=== PATIENT | male | born 1985 | race Caucasian/White ===

== ENCOUNTER 2020-07-22 19:31 | Emergency (ER) | payer MEDICAID, SELFPAY ==
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
[2020-07-22 19:35] VITALS: BP 159/92; PULSE 124; PULSE 140; RESP 12; TEMP 36.9; O2SAT 95; BMI 23.8
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
--- NOTE | 2020-07-22 19:47 | ECG_ITS ---
Test Reason : OVERDOSE Blood Pressure : / mmHG Vent. Rate : 124 BPM Atrial Rate : 124 BPM P-R Int : 164 ms QRS Dur : 106 ms QT Int : 310 ms P-R-T Axes : 066 072 058 degrees QTc Int : 445 ms Sinus tachycardia Possible Left atrial enlargement Borderline ECG When compared with ECG of 30-MAR-2018 06:49, No significant change was found Referred By: Lisa Schneider Electronically Signed By:CHRISSY VUONG
--- NOTE | 2020-07-22 19:56 | PC.NURSE ---
Pt walking out of the emergency room at this time, [employer] phoned and made aware pt is leaving, no precinct police sergeant was present at bedside, pt ambulating with steady gait. Alert and oriented.
== END 2020-07-22 20:05 | disposition left against medical advice (07) ==
PROVIDERS: Emergency Provider Emergency Medicine Emergency Medical Services
DX: Z04.1 Encounter for examination and observation following transport accident (principal); F14.90 Cocaine use, unspecified, uncomplicated; F11.90 Opioid use, unspecified, uncomplicated
CPT/HCPCS: 71046; 93005; 99283

== ENCOUNTER 2020-10-05 19:21 | Emergency (ER) | payer MEDICAID, SELFPAY ==
[2020-10-05 19:53] VITALS: BP 155/91; PULSE 86; RESP 15; TEMP 36.6; O2SAT 94; BMI 23.7
--- NOTE | 2020-10-05 22:05 | ED_ITS ---
HPI - Extremity Problem General Chief complaint: Extremity Injury, Upper Stated complaint: ?Hand infection Time Seen by Provider: 10/05/20 21:53 Source: patient Mode of arrival: ambulatory History of Present Illness HPI Narrative: 35-year-old male, JOSH, who presents with small ulceration to the left distal index finger pad as well as middle finger pad with surrounding erythema but minimal induration noted patient is able to flex and extend all digits and denies any fevers or chills. Related Data Previous Rx's Medication Instructions Recorded cephalexin 500 mg capsule 500 mg PO Q12H 7 Days #14 cap 10/05/20 doxycycline hyclate 100 mg tablet 100 mg PO BID 7 Days #14 tab 10/05/20 Allergies Allergy/AdvReac Type Severity Reaction Status Date / Time No Known Allergies Allergy Unverified 10/24/19 17:03 [No Known Allergies*] Review of Systems Review of Systems: Pertinent positives and negatives as stated in HPI 10 point review of systems is otherwise negative. [facility] Past Medical History Source: nursing notes reviewed Social History Social History Advance Directives: No Advance Directives Information Provided: No Physical Exam Vital Signs: Vital Signs: Last Vital Signs Temp 97.9 F 10/05/20 19:53 Pulse 86 10/05/20 19:53 Resp 15 10/05/20 19:53 BP 155/91 H 10/05/20 19:53 Pulse Ox 94 10/05/20 19:53 Body Mass Index 23.7 VITAL SIGNS: Reviewed. GENERAL: Well developed, well nourished, in no acute distress. HEAD: Normocephalic/atraumatic EYES: PERRLA, EOMI OROPHARYNX: no oral lesions noted, posterior pharynx clear LUNGS: Normal breath sounds. No adventitious sounds or accessory muscle use. SpO2<94> CARDIOVASCULAR: Regular rate and rhythm without noted murmurs ABDOMEN: Soft, non-tender, non-distended with bowel sounds. MUSCULOSKELETAL: No tenderness, deformities, or effusions noted on gross inspection. EXTREMITIES: No cyanosis, clubbing or edema, small 0.25 ulcerations noted to pad of left index and middle finger with minimal erythema of the fingers and no observed induration SKIN: Inspection of the skin reveals no rashes, otherwise refer to extremity exam NEUROLOGIC: Alert and oriented x 4. Course Course Course Narrative: 35-year-old male with history and clinical presentation consistent with what he describes is possible work related injury, will place on trial of antibiotics with strict instructions to return if there is no further improvement. Patient will also be provided with a hand surgery referral. Discharge Plan Discharge Clinical Impression: Finger infection Patient Disposition: Home, Self-Care Instructions: Puncture Wound (ED) Additional Instructions: 1. Complete the entire course of antibiotics as prescribed. 2. If there is no further improvement in the next 24-48 hours please call the referral provided below for re-evaluation. 3. If there is worsening over the next 24 hours please return to the emergency room. Prescriptions: New doxycycline hyclate 100 mg tablet 100 mg PO BID 7 Days Qty: 14 RF: 0 cephalexin 500 mg capsule 500 mg PO Q12H 7 Days Qty: 14 RF: 0 Referrals: Elena Reinoso MD [Physician] - 2 days
[2020-10-05] MEDS: cephALEXin 500 MG CAPSULE PO (22:32)
== END 2020-10-05 22:34 | disposition home or self-care (01) ==
PROVIDERS: Emergency Provider Student in an Organized Health Care Education/Training Program
DX: L08.9 Local infection of the skin and subcutaneous tissue, unspecified (principal)
CPT/HCPCS: 99283

== ENCOUNTER 2022-05-17 20:29 | Inpatient (IN) | payer OTHER, SELFPAY ==
--- OUTSIDE RECORDS SUMMARY | 2022-05-17 20:35 | XMS_ITS | Continuity of Care Document ---
Author Name Unknown Organization [facility] Address [address] [place] [address]- Care Team Providers Care Concrete Products Dispatcher Name Role Phone Pia GILMAN, Maria Esther Mayberry Primary Care Physician Encounter [facility] [place] Date(s): 07/12/19 - 07/13/[address] [id number] [phone] Encounter Diagnosis Cocaine use disorder(Final) - 07/12/19 Opioid use disorder(Final) - 07/12/19 Discharge Disposition: A-D/C Home Attending Physician: Clayton Malone DO Admitting Physician: Clayton Malone DO Referring Physician: Not on Staff, Referring MD Allergies, Adverse Reactions, Alerts Substance Reaction Severity Status NKA Active Medications Harvoni 1 tablet, By Mouth, Daily, 0 Refills, Maintenance, 01/10/17 13:01:20 Start Date: 01/10/17 Status: Ordered Narcan 4 mg/0.1 mL nasal spray = 4 mg, Nares, Both, Once, may repeat every 2 to 3 minutes until patient responds PRN overdose, # 2each, 0 Refills, Soft Stop, 06/22/19 8:11:00 EDT, [facility], 183, cm, 12/24/18 23:23:00 EST, Height, 79.5, kg, 12/24/18 23:23:00 EST... Start Date: 06/22/19 Status: Ordered Problem List Condition Effective Dates Status Health Status Inform ant Chronic hepatitis C(Confirmed) Active Hepatitis c, chronic(Confirmed) 05/02/14 Active Hepatitis B immune(Confirmed) Active Vital Signs Most recent to oldest [Reference Range]: 1 2 3 Height 183 cm (07/12/19 8:00 PM) 183 cm (07/12/19 6:00 PM) 183 cm (07/12/19 4:00 PM) Weight 79.5 kg (07/12/19 8:00 PM) 79.5 kg (07/12/19 6:00 PM) 79.5 kg (07/12/19 4:00 PM) Oxygen Saturation [94-100 %] 98 % (07/13/19 12:00 AM) 100 % (07/12/19 11:10 PM) 96 % (07/12/19 8:00 PM) Pulse Rate [55-90 bpm] 81 bpm (07/13/19 12:00 AM) 84 bpm (07/12/19 11:10 PM) 80 bpm (07/12/19 8:00 PM) Body Mass Index [18.5-24.99] 23.74 (07/12/19 8:00 PM) 23.74 (07/12/19 6:00 PM) 23.74 (07/12/19 4:00 PM) Blood Pressure [90-138/55-84 mm Hg] 137/76mm Hg (07/13/19 12:00 AM) 135/84mm Hg (07/12/19 11:10 PM) 145/83mm Hg *H* (07/12/19 8:00 PM) Respiratory Rate [16-30 br/min] 16 br/min (07/13/19 12:00 AM) 16 br/min (07/12/19 11:10 PM) 17 br/min (07/12/19 8:00 PM) Temperature [96.8-100.4 DegF] 97.8 DegF (07/12/19 2:35 PM) Mode of Delivery (Oxygen) Room air (07/13/19 12:00 AM) Room air (07/12/19 8:00 PM) Room air (07/12/19 6:00 PM) Blood pressure sites Arm, left (07/12/19 8:00 PM) Arm, left (07/12/19 6:00 PM) Arm, left (07/12/19 4:00 PM) Temperature Route Oral (07/12/19 2:35 PM) Dry Weight 79.5 kg (07/12/19 8:00 PM) 79.5 kg (07/12/19 6:00 PM) 79.5 kg (07/12/19 4:00 PM) Weight Obtained Via 134 (07/12/19 2:35 PM) Social History Social History Type Response Smoking Status 10 or more cigarette s (1/2 pack or more)/day in last 30 days entered on: 12/24/18 Sex Male
--- OUTSIDE RECORDS SUMMARY | 2022-05-17 20:35 | XMS_ITS | Continuity of Care Document ---
Author Name Unknown Organization [facility] Address [address] [place] [id number]- Care Team Providers Care Sea Kayaking Guide Name Role Phone Pia GILMAN, Maria Eshter Mayberry Primary Care Physician [phone] Encounter [facility] [place] Date(s): 06/18/19 - 07/18/19 [facility] [address] [place] [id number] [facility] Attending Physician: Kenroy Paula Admitting Physician: Kenroy Paula Referring Physician: AdmtrKenroy Allergies, Adverse Reactions, Alerts Substance Reaction Severity Status NKA Active Medications Harvoni 1 tablet, By Mouth, Daily, 0 Refills, Maintenance, 01/10/17 13:01:20 Start Date: 01/10/17 Status: Ordered Narcan 4 mg/0.1 mL nasal spray = 4 mg, Nares, Both, Once, may repeat every 2 to 3 minutes until patient responds PRN overdose, # 2each, 0 Refills, Soft Stop, 06/22/19 8:11:00 EDT, [facility], 183, cm, 12/24/18 23:23:00 EST, Height, 79.5, kg, 12/24/18 23:23:00 EST... Start Date: 06/22/19 Status: Ordered Problem List Condition Effective Dates Status Health Status Inform ant Chronic hepatitis C(Confirmed) Active Hepatitis c, chronic(Confirmed) 05/02/14 Active Hepatitis B immune(Confirmed) Active Social History Social History Type Response Smoking Status 10 or more cigarette s (1/2 pack or more)/day in last 30 days entered on: 12/24/18 Sex Male
--- OUTSIDE RECORDS SUMMARY | 2022-05-17 20:35 | XMS_ITS | Continuity of Care Document ---
Author Name Unknown Organization [facility] Address [address] [place] [id number]- Care Team Providers Care Civil Clerk Name Role Phone Maria Esther Palacio NP Primary Care Physician [place] [facility] [place] [facility] [place]11/20 - 03/12/20 [facility] [address] [place] [id number] Allergies, Adverse Reactions, Alerts Substance Reaction Severity Status NKA Active Medications Harvoni 1 tablet, By Mouth, Daily, 0 Refills, Maintenance, 01/10/17 13:01:20 Start Date: 01/10/17 Status: Ordered Mavyret 100 mg-40 mg oral tablet 3 tablet, By Mouth, Daily, # 84 tablet, 1 Refills, Maintenance, 02/11/20 14:52:00 EST, [facility], Partial fill upon patient request if the prescription is for a schedule II opioid drug., 3 tablet By Mouth Daily,x28 days, 183, cm, 12/... Start Date: 02/11/20 Stop Date: 04/07/20 Status: Ordered Narcan 4 mg/0.1 mL nasal spray = 4 mg, Nares, Both, Once, may repeat every 2 to 3 minutes until patient responds PRN overdose, # 2each, 0 Refills, Soft Stop, 06/22/19 8:11:00 EDT, [facility], 183, cm, 12/24/18 23:23:00 EST, [...]
--- OUTSIDE RECORDS SUMMARY | 2022-05-17 20:35 | XMS_ITS | Continuity of Care Document ---
Author Name Unknown Organization [facility] Address [address] [place] [id number]- Care Team Providers Care Spool Tender Name Role Phone Maria Esther Palacio NP Primary Care Physician Encounter [facility] Date(s): 03/20/19 - 07/18/19 [facility] [address] [place] [id number] [facility] Attending Physician: Haley Arevalo NP Admitting Physician: Haley Arevalo NP Referring Physician: Maria Esther Palacio NP Allergies, Adverse Reactions, Alerts Substance Reaction Severity Status NKA Active Medications Harvoni 1 tablet, By Mouth, Daily, 0 Refills, Maintenance, 01/10/17 13:01:20 Start Date: 01/10/17 Status: Ordered Narcan 4 mg/0.1 mL nasal spray = 4 mg, Nares, Both, Once, may repeat every 2 to 3 minutes until patient responds PRN overdose, # 2each, 0 Refills, Soft Stop, 06/22/19 8:11:00 EDT, [facility], 183, cm, 12/24/18 23:23:00 EST, [...]
--- OUTSIDE RECORDS SUMMARY | 2022-05-17 20:35 | XMS_ITS | Continuity of Care Document ---
Author Name Unknown Organization [facility] Address [address] [place] [id number]- Care Team Providers Care Poultry Process Worker Name Role Phone Maria Esther Palacio NP Primary Care Physician Encounter [facility] [place] Date(s): 01/16/20 - 02/15/20 [facility] [address] [place] [id number]- Attending Physician: Kenroy Paula Admitting Physician: Admtr, Kenroy Referring Physician: Admtr, Ar8 Allergies, Adverse Reactions, Alerts Substance Reaction Severity Status NKA Active Medications Harvoni 1 tablet, By Mouth, Daily, 0 Refills, Maintenance, 01/10/17 13:01:20 Start Date: 01/10/17 Status: Ordered Mavyret 100 mg-40 mg oral tablet 3 tablet, By Mouth, Daily, # 84 tablet, 1 Refills, Maintenance, 02/11/20 14:52:00 EST, [facility], Partial fill upon patient request if the prescription is for a schedule II opioid drug., 3 tablet By Mouth Daily,x28 days, 183, cm, ... Start Date: 02/11/20 Stop Date: 04/07/20 Status: Ordered Narcan 4 mg/0.1 mL nasal spray = 4 mg, Nares, Both, Once, may repeat every 2 to 3 minutes until patient responds PRN overdose, # 2each, 0 Refills, Soft Stop, 06/22/19 8:11:00 EDT, [facility], 183, cm, 12/24/18 23:23:00 [...]
[2022-05-17] MEDS: Gabapentin 100 MG CAPSULE PO (21:22)
[2022-05-17] MEDS: Mirtazapine 15 MG TABLET PO (21:22)
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
[2022-05-17] MEDS: Nicotine Polacrilex 2 MG GUM BUCCAL (22:16)
--- NOTE | 2022-05-18 06:42 | HE.PHANOTE ---
Pharmacy has received patients methadone verification form. Patient was verified to have 80 mg dosing, last dose was 05/17/22. Verified by María Elena Pisano with [facility]
[2022-05-18] MEDS: Gabapentin 100 MG CAPSULE PO (08:22)
[2022-05-18] MEDS: Sertraline HCL 50 MG TABLET PO (08:22)
[2022-05-18] MEDS: Nicotine 14 MG PATCH.TD24 TRANSDERMA (08:22)
[2022-05-18] MEDS: methADONE HCl 20 MG/2 ML ORAL.CONC 80 MG PO (08:22)
[2022-05-18 08:56] LABS: Estimated Average Glucose 100 mg/dL; Hemoglobin A1c % 5.1 %
[2022-05-18 09:10] LABS: Cholesterol 161 mg/dL; HDL Cholesterol 44 mg/dL; LDL Cholesterol Calculated 100 mg/dl; Magnesium 1.9 mg/dL (1.6-2.6); Triglycerides 85 mg/dL
--- NOTE | 2022-05-18 09:33 | HO.PSYADMNOT ---
HPI Date of Service: 05/18/22 Chief Complaint: Major Depressive Disorder Sources of Information: patient interviewed, chart reviewed and crisis/core team assessment reviewed HPI Subjective Notes: [facility]ley Warning and Conditional Voluntary Diagnostics Labs Labs: Laboratory Results - last 48 hr 05/18/22 05/18/22 08:15 08:15 Estimat Average Glucose 100 Hemoglobin A1c % 5.1 Magnesium 1.9 Triglycerides 85 Cholesterol 161 LDL Cholesterol, Calc 100 HDL Cholesterol 44 Meds/Allergies Meds Home Medications Medication Instructions Recorded Confirmed Type methadone 10 mg/mL oral concentrate 80 mg PO DAILY 05/18/22 05/18/22 History Allergies Allergies Allergy/AdvReac Type Severity Reaction Status Date / Time No Known Allergies Allergy Unverified 10/24/19 17:03 [No Known Allergies*] Assessment & Plan Statement Statement: I have reviewed the history and physical and performed a pertinent examination on my patient. No changes have occurred unless specified. If the History and Physical was not performed prior to admission, the Hospitalist's service will be consulted for completing the admission physical. Time Spent With Patient Time: Total time managing care of this patient today ____ minutes.
[2022-05-18 09:41] LABS: Folate 7.5 ng/mL (> or = 4.0); Free T4 (Free Thyroxine) 0.91 ng/dL (0.71-1.85); Thyroid Stimulating Hormone 5.62 uIU/mL (0.32-4.0); Vitamin B12 434 pg/mL (200-900)
[2022-05-18 09:58] VITALS: BP 171/87; PULSE 82; RESP 18; TEMP 36.4; O2SAT 97
[2022-05-18] MEDS: Nicotine Polacrilex 2 MG GUM BUCCAL (11:01)
[2022-05-18] MEDS: Gabapentin 300 MG CAPSULE 600 MG PO ×2 (14:18→20:11)
[2022-05-18] MEDS: hydrOXYzine HCL 25 MG TABLET PO ×2 (14:20→20:11)
--- NOTE | 2022-05-18 15:11 | HO.PSYCHPN ---
Subjective Subjective Date of Service: 05/18/22 Reason For Visit: Major Depressive Disorder Subjective Notes: Conditional Voluntary Healthcare Proxy: No Guardianship: No Medical Problems Affecting Mental Status: No Interim History: 37 yo male, hx of bipolar disorder, alcohol use disorder, opiate use disorder- on Methadone, MENDEZ, transfer from [facility] for SI with plan, increase in depression due to life changes and losses. Pt reports he is 10 months sober. He had been on an effective combination of medications, stopped as he reports he was feeling better and did not think they were needed any longer and declined. With increasing depressive sx, pt felt his sobriety was in jeopardy when girlfriend relapsed-as a result he left the home, and fathers home had substances present as well. He then reported an increase in sx resulting in SI with plan. States today he is pleased to be back on medications. States he thought his emotional support animal would take the place of medications, now realizes he needs both. Reports feeling tired but with a sense of relief he is in treatment. He will return to his home and work with supports and regime suggested along with a return to his OP team. Medication Compliance: Yes Side effects from medications: No Attending Groups: Intermittent Review of Systems Acute medical concerns: No Medical Review of Systems: unchanged Review of Systems Review of Systems Yes all other systems are reviewed and are negative Constitutional: Reports no additional constitutional complaints Eyes: Reports no additional eye complaints Reports system reviewed and no additional complaints, except as documented Cardiovascular: Reports no additional cardiovascular complaints Respiratory: Reports no additional respiratory complaints Gastrointestinal: Reports no additional gastrointestinal complaints Genitourinary: Reports no additional male genitourinary complaints Musculoskeletal: Reports no additional musculoskeletal complaints Skin/Breast: Reports system reviewed and no additional complaints, except as docu Reports system reviewed and no additional complaints, except as documented Psychiatric: Reports depression, Reports difficulty concentrating and Reports suicidal ideation Endocrine: Reports no additional endocrine complaints Hematologic/Lymphatic: Reports no additional hematologic/lymphatic complaints Allergic/Immunologic: Reports no additional allergic/immunologic complaints Mental Status Exam Mental Status Exam Patient Appearance: Appropriate Patient Orientation: Person, Place, Time and Situation Level of Consciousness: Alert Patient Behavior: Appropriate, Talkative, Cooperative and Good Eye Contact Mood Description: Depressed and Anxious Affect Description: Flat Patient Cognition Impaired: No Ability to Follow Directions: Good Speech Pattern: Spontaneous Speech Memory Description: Intact Hallucinations: None Delusions: Not Present Thought Process: Rumination Thought Content: positive for Circumstantial and positive for Perseveration Depressive Symptoms: Increased Anxiety and Thoughts of /Suicide (resolving) Judgement: Good Diagnostics Vital Signs (24Hr): Vital Signs - 24 hr 05/18/22 09:58 Temperature 97.6 F Pulse Rate 82 Respiratory Rate 18 Blood Pressure 171/87 H Pulse Oximetry 97 Oxygen Delivery Method Room Air Labs Labs: Laboratory Results - last 48 hr 05/18/22 05/18/22 08:15 08:15 Estimat Average Glucose 100 Hemoglobin A1c % 5.1 Magnesium 1.9 Triglycerides 85 Cholesterol 161 LDL Cholesterol, Calc 100 HDL Cholesterol 44 Vitamin B12 434 Folate 7.5 TSH 5.62 H Free T4 0.91 Medications Medications Current Medications Acetaminophen (Acetaminophen 325 Mg Tablet) 650 mg PO Q6H PRN PRN Reason: Headache/Pain Mild Scale (1-3) Al Hydroxide/Mg Hydroxide (Magnesium Hydrox/Alum Hydrox 30 Ml Oral.Susp) 30 ml PO Q6H PRN PRN Reason: Heartburn/Nausea Gabapentin (Gabapentin 300 Mg Capsule) 600 mg PO TID [facility] Last Admin: 05/18/22 14:18 Dose: 600 mg Hydroxyzine HCl (Hydroxyzine Hcl 25 Mg Tablet) 25 mg PO Q6H PRN PRN Reason: Anxiety Last Admin: 05/18/22 14:20 Dose: 25 mg Magnesium Hydroxide (Milk Of Magnesia 30 Ml Oral.Susp) 30 ml PO DAILY PRN PRN Reason: Constipation Methadone HCl (Methadone Hcl 20 Mg/2 Ml Oral.Conc) 80 mg PO DAILY [facility] Last Admin: 05/18/22 08:22 Dose: 80 mg Mirtazapine (Mirtazapine 15 Mg Tablet) 15 mg PO BEDTIME [facility] Last Admin: 05/17/22 21:22 Dose: 15 mg Nicotine (Nicotine 21 Mg Patch.Td24) 21 mg TRANSDERMA DAILY [facility] Nicotine Polacrilex (Nicotine Polacrilex 2 Mg Gum) 2 mg BUCCAL Q2H PRN PRN Reason: Nicotine Cravings Last Admin: 05/18/22 11:01 Dose: 2 mg Sertraline HCl (Sertraline Hcl 100 Mg Tablet) 100 mg PO DAILY [facility] Trazodone HCl (Trazodone Hcl 50 Mg Tablet) 50 mg PO BEDTIME MRX1 PRN PRN Reason: Insomnia Allergies Allergies Allergy/AdvReac Type Severity Reaction Status Date / Time No Known Allergies Allergy Unverified 10/24/19 17:03 [No Known Allergies*] Assessment & Plan Assessment & Plan (1) Bipolar disorder: Status: Acute Code(s): F31.9 - Bipolar disorder, unspecified (2) Anxiety: Status: Acute Code(s): F41.9 - Anxiety disorder, unspecified Plan 37 yo male, hx of bipolar disorder, anxiety, opioid use disorder, currently on Methadone, alcohol use disorder, sober for 10 months with SI due to stopping meds (he thought he was improved and did not need them), replacing meds with a service animal and experiencing girlfriends relapse and familys use of substances in their home increasing his relapse risk and resulting in SI. Plan: Increase Sertraline to 100 mg daily-pt was taking this at home Increase Gabapentin to 600 mg tid-pt was taking this at home Continue Remeron/Methadone Collateral contact as needed Refer to OP for ongoing med mgt and therapy. Patient educated on: medication risk/benefits and therapeutic strategies Informed Consent: understands and further education needed Reason for contiued inpatient stay Substantial Risk for: rapid decompensation Time Spent With Patient Time: Total time managing care of this patient today ____ minutes.
--- NOTE | 2022-05-18 15:43 | HO.PM.IMCN ---
History of Present Illness Data of Consult Service Date: 05/18/22 Requesting physician: Matt Cowan Primary Care Provider: Maria Esther Palacio NP HPI Reason for consult: medical H&P 37-year-old male with history of anxiety, depression, bipolar disorder, ADHD, history of IV drug abuse last use 10 months ago now maintained on methadone, who is a current every day nicotine vapor admitted to Psychiatry with consult placed to hospitalist service for medical H and P. He has had intermittent hypertension noted at [facility] ED and since admission, suspect anxiety is at least contributory. Denies any history of hypertension. He has no complaints at this time. Review of Systems Review of Systems: General: No fevers, malaise, unintentional weight loss HEENT: No blurred vision, diplopia. No sore throat, nasal congestion, rhinorrhea, sinus pain, ear pain Cardiovascular: No chest pain, palpitations, or leg edema Respiratory: No shortness of breath, wheezing, cough GI: No abdominal pain, nausea, vomiting, diarrhea, constipation, melena, hematochezia : No dysuria, hematuria, increased urinary frequency, decreased urinary output MSK: No myalgia, back pain Neuro: No headaches, weakness, paresthesias Skin: No rashes or lesions PMF Medical History ADHD Anxiety Bipolar disorder History of intravenous drug abuse Opioid dependence on agonist therapy Social History Household Members: None Housing: Apartment Do you presently have visiting nurse or other home services: No Patient Tobacco Use Status: Current everyday Tobacco user Tobacco use type: Smokeless Tobacco Smoked in Last 30 Days: Yes e-Cigarette/Vaping Use: Currently Using Patient Interested in Nicotine Replacement: Yes Use of substances other than those prescribed or required for medical reasons: No Currently Displaying Signs/Symptoms of Drug Intoxication Withdrawal: No Have you been hit, kicked, punched, or otherwise hurt by someone within the past year? If so, by whom?: No Do you feel safe in your current relationship?: No Current Relationship Is there a partner from a previous relationship who is making you feel unsafe now?: No Are you made to feel afraid or neglected: No Advance Directives: No Advance Directives Information Provided: No Do you have thoughts of harming others: None Do you have a plan to hurt others: No Plan Recently lost weight without trying: Yes How much weight loss: 2-13 pounds Eating poorly because of decreased appetite: No Nutrition screen score: 3 Nutrition Risks: No Nutritional Risk Poor oral hygiene: No Meds Allergies Allergy/AdvReac Type Severity Reaction Status Date / Time No Known Allergies Allergy Unverified 10/24/19 17:03 [No Known Allergies*] Active Medications: Current Medications Acetaminophen (Acetaminophen 325 Mg Tablet) 650 mg PO Q6H PRN PRN Reason: Headache/Pain Mild Scale (1-3) Al Hydroxide/Mg Hydroxide (Magnesium Hydrox/Alum Hydrox 30 Ml Oral.Susp) 30 ml PO Q6H PRN PRN Reason: Heartburn/Nausea Gabapentin (Gabapentin 300 Mg Capsule) 600 mg PO TID [facility] Last Admin: 05/18/22 14:18 Dose: 600 mg Hydroxyzine HCl (Hydroxyzine Hcl 25 Mg Tablet) 25 mg PO Q6H PRN PRN Reason: Anxiety Last Admin: 05/18/22 14:20 Dose: 25 mg Magnesium Hydroxide (Milk Of Magnesia 30 Ml Oral.Susp) 30 ml PO DAILY PRN PRN Reason: Constipation Methadone HCl (Methadone Hcl 20 Mg/2 Ml Oral.Conc) 80 mg PO DAILY [facility] Last Admin: 05/18/22 08:22 Dose: 80 mg Mirtazapine (Mirtazapine 15 Mg Tablet) 15 mg PO BEDTIME [facility] Last Admin: 05/17/22 21:22 Dose: 15 mg Nicotine (Nicotine 21 Mg Patch.Td24) 21 mg TRANSDERMA DAILY [facility] Nicotine Polacrilex (Nicotine Polacrilex 2 Mg Gum) 2 mg BUCCAL Q2H PRN PRN Reason: Nicotine Cravings Last Admin: 05/18/22 11:01 Dose: 2 mg Sertraline HCl (Sertraline Hcl 100 Mg Tablet) 100 mg PO DAILY [facility] Trazodone HCl (Trazodone Hcl 50 Mg Tablet) 50 mg PO BEDTIME MRX1 PRN PRN Reason: Insomnia Home Medications Medication Instructions Recorded Confirmed Last Taken Type methadone 10 mg/mL oral concentrate 80 mg PO DAILY 05/18/22 05/18/22 05/17/22 History Physical Exam Vital Signs and Narrative: Vital Signs: Last Vital Signs Temp 97.6 F 05/18/22 09:58 Pulse 82 05/18/22 09:58 Resp 18 05/18/22 09:58 BP 171/87 H 05/18/22 09:58 Pulse Ox 97 05/18/22 09:58 O2 Del Method Room Air 05/18/22 09:58 Constitutional - Awake and Alert, No apparent distress Eyes - PERRLA, EOMI Cardiovascular - S1S2, RRR, No edema Respiratory - Normal lung expansion, Normal respiratory effort, No respiratory distress, CTA bilaterally Gastrointestinal - NT / ND; +BS; No rebound or guarding Extremities - no calf tenderness bilaterally, no swelling Musculoskeletal - Normal inspection, normal ROM Skin - Warm/Dry Neurological - Alert & oriented x3, CN II-XII in tact, 5/5 strength BUE and BLE Psychological - Appropriate affect Results Labs Labs: Laboratory Results - last 24 hr 05/18/22 05/18/22 08:15 08:15 Estimat Average Glucose 100 Hemoglobin A1c % 5.1 Magnesium 1.9 Triglycerides 85 Cholesterol 161 LDL Cholesterol, Calc 100 HDL Cholesterol 44 Vitamin B12 434 Folate 7.5 TSH 5.62 H Free T4 0.91 Assessment and Plan (1) Routine medical exam: Status: Acute Plan 37-year-old male with history of anxiety, depression, bipolar disorder, ADHD, history of IV drug abuse last use 10 months ago now maintained on methadone, who is a current every day nicotine vapor admitted to Psychiatry with consult placed to hospitalist service for medical H and P. #Mood disorder -plan per psychiatry #Opioid dependence with history IVDA -continue methadone -Last heroin use 10 months ago #Elevated blood pressures -Has intermittent HTN as well as normotensive readings at [facility] ED. -Suspect anxiety contributory -However, if BP remains >140/90, consider adding amlodipine 5mg daily #Nicotine dependence -Counseling on cessation -Patch for NRT Thank you for allowing me to participate in this consult. Signing off at this time. Please do not hesitate to call for further questions. Time Spent With Patient Time: Total time managing care of this patient today ____ minutes.
[2022-05-18 18:00] VITALS: BP 131/74; PULSE 51; RESP 20; TEMP 38.1; O2SAT 97
[2022-05-18] MEDS: Mirtazapine 15 MG TABLET PO (20:11)
[2022-05-18] MEDS: traZODone HCL 50 MG TABLET PO (20:11)
[2022-05-19] MEDS: Nicotine 21 MG PATCH.TD24 TRANSDERMA (08:34)
[2022-05-19] MEDS: methADONE HCl 20 MG/2 ML ORAL.CONC 80 MG PO (08:34)
[2022-05-19] MEDS: Gabapentin 300 MG CAPSULE 600 MG PO ×3 (08:34→20:45)
[2022-05-19] MEDS: Sertraline HCL 100 MG TABLET PO (08:34)
[2022-05-19 08:40] VITALS: BP 112/77; PULSE 67; RESP 18; TEMP 36.4; O2SAT 99
[2022-05-19] MEDS: Nicotine Polacrilex 2 MG GUM BUCCAL ×2 (10:32→15:20)
[2022-05-19] MEDS: hydrOXYzine HCL 25 MG TABLET PO (11:50)
[2022-05-19 16:42] VITALS: BP 128/64; PULSE 58
--- NOTE | 2022-05-19 18:53 | HO.PSYCHPN ---
Subjective Subjective Date of Service: 05/19/22 Reason For Visit: Major Depressive Disorder Subjective Notes: Conditional Voluntary and 3 Day Healthcare Proxy: No Guardianship: No Medical Problems Affecting Mental Status: No Interim History: Pt preparing for discharge 05/20/22. Discussed ADHD options today. Discussed guanfacine which we will begin. Review of different options for treatment which he should discuss with OP team. Also discussed shortages which may influence prescribing decisions. Discussed Vyvanse and efficacy. Medication Compliance: Yes Side effects from medications: No Attending Groups: Intermittent Review of Systems Acute medical concerns: No Medical Review of Systems: unchanged Mental Status Exam Mental Status Exam Patient Appearance: Appropriate Patient Orientation: Person, Place, Time and Situation Level of Consciousness: Alert Patient Behavior: Appropriate, Talkative, Cooperative and Good Eye Contact Mood Description: Depressed and Anxious Affect Description: Flat Patient Cognition Impaired: No Ability to Follow Directions: Good Speech Pattern: Spontaneous Speech Memory Description: Intact Hallucinations: None Delusions: Not Present Thought Process: Rumination Thought Content: positive for Circumstantial and positive for Perseveration Depressive Symptoms: Increased Anxiety and Thoughts of /Suicide (denies) Judgement: Good Diagnostics Vital Signs (24Hr): Vital Signs - 24 hr 05/19/22 08:40 05/19/22 16:42 Temperature 97.6 F Pulse Rate 67 58 Respiratory Rate 18 Blood Pressure 112/77 128/64 Pulse Oximetry 99 Oxygen Delivery Method Room Air Labs Labs: Laboratory Results - last 48 hr 05/18/22 05/18/22 08:15 08:15 Estimat Average Glucose 100 Hemoglobin A1c % 5.1 Magnesium 1.9 Triglycerides 85 Cholesterol 161 LDL Cholesterol, Calc 100 HDL Cholesterol 44 Vitamin B12 434 Folate 7.5 TSH 5.62 H Free T4 0.91 Medications Medications Current Medications Acetaminophen (Acetaminophen 325 Mg Tablet) 650 mg PO Q6H PRN PRN Reason: Headache/Pain Mild Scale (1-3) Al Hydroxide/Mg Hydroxide (Magnesium Hydrox/Alum Hydrox 30 Ml Oral.Susp) 30 ml PO Q6H PRN PRN Reason: Heartburn/Nausea Gabapentin (Gabapentin 300 Mg Capsule) 600 mg PO TID [facility] Last Admin: 05/19/22 14:12 Dose: 600 mg Guanfacine HCl (Guanfacine Hcl Er 1 Mg Tab.Er.24h) 1 mg PO BEDTIME [facility] Hydroxyzine HCl (Hydroxyzine Hcl 25 Mg Tablet) 25 mg PO Q6H PRN PRN Reason: Anxiety Last Admin: 05/19/22 11:50 Dose: 25 mg Magnesium Hydroxide (Milk Of Magnesia 30 Ml Oral.Susp) 30 ml PO DAILY PRN PRN Reason: Constipation Methadone HCl (Methadone Hcl 20 Mg/2 Ml Oral.Conc) 80 mg PO DAILY [facility] Last Admin: 05/19/22 08:34 Dose: 80 mg Mirtazapine (Mirtazapine 15 Mg Tablet) 15 mg PO BEDTIME [facility] Last Admin: 05/18/22 20:11 Dose: 15 mg Nicotine (Nicotine 21 Mg Patch.Td24) 21 mg TRANSDERMA DAILY [facility] Last Admin: 05/19/22 08:34 Dose: 21 mg Nicotine Polacrilex (Nicotine Polacrilex 2 Mg Gum) 2 mg BUCCAL Q2H PRN PRN Reason: Nicotine Cravings Last Admin: 05/19/22 15:20 Dose: 2 mg Sertraline HCl (Sertraline Hcl 100 Mg Tablet) 100 mg PO DAILY [facility] Last Admin: 05/19/22 08:34 Dose: 100 mg Trazodone HCl (Trazodone Hcl 50 Mg Tablet) 50 mg PO BEDTIME MRX1 PRN PRN Reason: Insomnia Last Admin: 05/18/22 20:11 Dose: 50 mg Allergies Allergies Allergy/AdvReac Type Severity Reaction Status Date / Time No Known Allergies Allergy Unverified 10/24/19 17:03 [No Known Allergies*] Assessment & Plan Assessment & Plan (1) Bipolar disorder: Status: Acute Code(s): F31.9 - Bipolar disorder, unspecified (2) Anxiety: Status: Acute Code(s): F41.9 - Anxiety disorder, unspecified Plan 37 yo male, hx of bipolar disorder, anxiety, opioid use disorder, currently on Methadone, alcohol use disorder, sober for 10 months with SI due to stopping meds (he thought he was improved and did not need them), replacing meds with a service animal and experiencing girlfriends relapse and family's use of substances in their home increasing his relapse risk and resulting in SI. Plan: Increase Sertraline to 100 mg daily-pt was taking this at home Increase Gabapentin to 600 mg tid-pt was taking this at home Continue Remeron/Methadone Collateral contact as needed Refer to OP for ongoing med mgt and therapy. 05/19/22 Guanfacine 1 mg HS Patient educated on: medication risk/benefits and therapeutic strategies Informed Consent: understands Reason for contiued inpatient stay Substantial Risk for: rapid decompensation Time Spent With Patient Time: Total time managing care of this patient today ____ minutes.
[2022-05-19] MEDS: Mirtazapine 15 MG TABLET PO (20:45)
[2022-05-19] MEDS: guanFACINE HCl ER 1 MG TAB.ER.24H PO (20:45)
[2022-05-20 06:00] VITALS: BP 153/90; PULSE 68; RESP 18; TEMP 37; O2SAT 97
[2022-05-20] MEDS: methADONE HCl 20 MG/2 ML ORAL.CONC 80 MG PO (08:13)
[2022-05-20] MEDS: Gabapentin 300 MG CAPSULE 600 MG PO ×3 (08:13→20:15)
[2022-05-20] MEDS: Sertraline HCL 100 MG TABLET PO (08:13)
[2022-05-20] MEDS: Nicotine 21 MG PATCH.TD24 TRANSDERMA (08:13)
[2022-05-20] MEDS: Nicotine Polacrilex 2 MG GUM BUCCAL (09:26)
[2022-05-20] MEDS: hydrOXYzine HCL 25 MG TABLET PO (09:34)
--- NOTE | 2022-05-20 15:38 | P.PNPSI_ITS ---
Subjective Subjective Date of Service: 05/20/22 Reason For Visit: Major Depressive Disorder Subjective Notes: Conditional Voluntary and 3 Day (retraction) Healthcare Proxy: No Guardianship: No Medical Problems Affecting Mental Status: No Interim History: Yossi retracted his three day notice, decided to remain in pt to work on symptoms, medications and in group therapy. He is very anxious today. He reports his father is taking his boss to detox today and he feels that leaving will jeopardize his sobriety if triggered. I am just not ready, I was in too much of a douglas . (took feedback from his renal social worker who asked him to reconsider). Reviewed sx-racing thoughts-discussed mood stabilizer trial, sleep with tossing and turning, ADD sx. Reports an increase in urination-will complete UACS Medication Compliance: Yes Side effects from medications: No Attending Groups: Intermittent Review of Systems Acute medical concerns: No Medical Review of Systems: unchanged Mental Status Exam Mental Status Exam Patient Appearance: Appropriate Patient Orientation: Person, Place, Time and Situation Level of Consciousness: Alert Patient Behavior: Appropriate, Talkative, Cooperative, Anxious and Good Eye Contact Mood Description: Depressed and Anxious Affect Description: Anxious Patient Cognition Impaired: No Ability to Follow Directions: Good Speech Pattern: Spontaneous Speech Memory Description: Intact Hallucinations: None Delusions: Not Present Thought Process: Rumination Thought Content: positive for Circumstantial and positive for Perseveration Depressive Symptoms: Increased Anxiety and Thoughts of /Suicide (denies) Judgement: Good Diagnostics Vital Signs (24Hr): Vital Signs - 24 hr 05/19/22 16:42 05/20/22 06:00 Temperature 98.6 F Pulse Rate 58 68 Respiratory Rate 18 Blood Pressure 128/64 153/90 H Pulse Oximetry 97 Oxygen Delivery Method Room Air Medications Medications Current Medications Acetaminophen (Acetaminophen 325 Mg Tablet) 650 mg PO Q6H PRN PRN Reason: Headache/Pain Mild Scale (1-3) Al Hydroxide/Mg Hydroxide (Magnesium Hydrox/Alum Hydrox 30 Ml Oral.Susp) 30 ml PO Q6H PRN PRN Reason: Heartburn/Nausea Gabapentin (Gabapentin 300 Mg Capsule) 600 mg PO TID [facility] Last Admin: 05/20/22 14:12 Dose: 600 mg Guanfacine HCl (Guanfacine Hcl Er 1 Mg Tab.Er.24h) 1 mg PO BEDTIME [facility] Last Admin: 05/19/22 20:45 Dose: 1 mg Hydroxyzine HCl (Hydroxyzine Hcl 25 Mg Tablet) 25 mg PO Q6H PRN PRN Reason: Anxiety Last Admin: 05/20/22 09:34 Dose: 25 mg Magnesium Hydroxide (Milk Of Magnesia 30 Ml Oral.Susp) 30 ml PO DAILY PRN PRN Reason: Constipation Methadone HCl (Methadone Hcl 20 Mg/2 Ml Oral.Conc) 80 mg PO DAILY [facility] Last Admin: 05/20/22 08:13 Dose: 80 mg Mirtazapine (Mirtazapine 15 Mg Tablet) 15 mg PO BEDTIME [facility] Last Admin: 05/19/22 20:45 Dose: 15 mg Nicotine (Nicotine 21 Mg Patch.Td24) 21 mg TRANSDERMA DAILY [facility] Last Admin: 05/20/22 08:13 Dose: 21 mg Nicotine Polacrilex (Nicotine Polacrilex 2 Mg Gum) 2 mg BUCCAL Q2H PRN PRN Reason: Nicotine Cravings Last Admin: 05/20/22 09:26 Dose: 2 mg Sertraline HCl (Sertraline Hcl 100 Mg Tablet) 100 mg PO DAILY [facility] Last Admin: 05/20/22 08:13 Dose: 100 mg Trazodone HCl (Trazodone Hcl 50 Mg Tablet) 50 mg PO BEDTIME MRX1 PRN PRN Reason: Insomnia Last Admin: 05/18/22 20:11 Dose: 50 mg Allergies Allergies Allergy/AdvReac Type Severity Reaction Status Date / Time No Known Allergies Allergy Unverified 10/24/19 17:03 [No Known Allergies*] Assessment & Plan Assessment & Plan (1) Bipolar disorder: Status: Acute Code(s): F31.9 - Bipolar disorder, unspecified (2) Anxiety: Status: Acute Code(s): F41.9 - Anxiety disorder, unspecified Plan 37 yo male, hx of bipolar disorder, anxiety, opioid use disorder, currently on Methadone, alcohol use disorder, sober for 10 months with SI due to stopping meds (he thought he was improved and did not need them), replacing meds with a service animal and experiencing girlfriends relapse and family's use of substances in their home increasing his relapse risk and resulting in SI. Plan: Increase Sertraline to 100 mg daily-pt was taking this at home Increase Gabapentin to 600 mg tid-pt was taking this at home Continue Remeron/Methadone Collateral contact as needed Refer to OP for ongoing med mgt and therapy. 05/19/22 Guanfacine 1 mg HS 05/20/22 Trileptal 300 mg bid Clonidine 0.1 mg bid prn anxiety Urine culture Patient educated on: medication risk/benefits and therapeutic strategies Informed Consent: further education needed Reason for continued inpatient stay Substantial Risk for: rapid decompensation Time Spent With Patient Time: Total time managing care of this patient today ____ minutes.
[2022-05-20] MEDS: guanFACINE HCl ER 1 MG TAB.ER.24H PO (20:15)
[2022-05-20] MEDS: Mirtazapine 15 MG TABLET PO (20:15)
[2022-05-20] MEDS: OXcarbazepine 300 MG TABLET PO (20:15)
--- NOTE | 2022-05-20 20:33 | MHC.RECOVSUP ---
? Reason for consult:OPI o? Current location:[facility]? o? Identified substance use concern:? -? Support ? Intervention: o? Community resources provided ? Plan: ? Additional information:[facility] went to meet with this pt, but didn't speak with pt. [facility] left recovery resources for pt with staff.
[2022-05-21 08:45] VITALS: BP 129/68; PULSE 62; RESP 18; TEMP 36.2; O2SAT 98
[2022-05-21] MEDS: Sertraline HCL 100 MG TABLET PO (08:46)
[2022-05-21] MEDS: Nicotine 21 MG PATCH.TD24 TRANSDERMA (08:47)
[2022-05-21] MEDS: OXcarbazepine 300 MG TABLET PO ×2 (08:47→19:31)
[2022-05-21] MEDS: methADONE HCl 20 MG/2 ML ORAL.CONC 80 MG PO (08:47)
[2022-05-21] MEDS: Gabapentin 300 MG CAPSULE 600 MG PO ×4 (08:47→19:31)
[2022-05-21] MEDS: hydrOXYzine HCL 25 MG TABLET PO ×2 (08:50→17:48)
[2022-05-21] MEDS: Nicotine Polacrilex 2 MG GUM 4 MG BUCCAL ×3 (10:33→17:48)
--- NOTE | 2022-05-21 11:38 | P.PNPSI_ITS ---
Subjective Subjective Date of Service: 05/21/22 Reason For Visit: Major Depressive Disorder Interim History: Patient seen, chart reviewed, case discussed with RN. Perseverating on wanting Adderall. Called numerous pharmacies in the area and found that [facility] in [place] has it and wants us to order it, stating that his father can go pick it up. With support of staff, did agree to take PRN clonidine. Had also taken vistaril earlier. Dr Huffman contacted and confirmed that she wants to complete trial of guanfacine before considering stimulants. Medication Compliance: Yes Side effects from medications: No Review of Systems Acute medical concerns: No Medical Review of Systems: unchanged Mental Status Exam Mental Status Exam Patient Appearance: Well Grooomed Patient Orientation: Person, Place, Time and Situation Level of Consciousness: Restless Patient Behavior: Restless and Uncooperative Mood Description: Anxious Affect Description: Apprehensive Ability to Follow Directions: Fair Speech Pattern: Perseverating Delusions: Not Present Thought Process: Intact Depressive Symptoms: Increased Anxiety Abnormal Motor Activity Signs and Symptoms: Restlessness Judgement: Fair Diagnostics Vital Signs (24Hr): Vital Signs - 24 hr 05/21/22 08:45 Temperature 97.1 F Pulse Rate 62 Respiratory Rate 18 Blood Pressure 129/68 Pulse Oximetry 98 Oxygen Delivery Method Room Air Medications Medications Current Medications Acetaminophen (Acetaminophen 325 Mg Tablet) 650 mg PO Q6H PRN PRN Reason: Headache/Pain Mild Scale (1-3) Al Hydroxide/Mg Hydroxide (Magnesium Hydrox/Alum Hydrox 30 Ml Oral.Susp) 30 ml PO Q6H PRN PRN Reason: Heartburn/Nausea Clonidine HCl (Clonidine Hcl 0.1 Mg Tablet) 0.1 mg PO BID PRN; Protocol PRN Reason: anxiety Gabapentin (Gabapentin 300 Mg Capsule) 600 mg PO TID [facility] Last Admin: 05/21/22 08:47 Dose: 600 mg Guanfacine HCl (Guanfacine Hcl Er 1 Mg Tab.Er.24h) 1 mg PO BEDTIME [facility] Last Admin: 05/20/22 20:15 Dose: 1 mg Hydroxyzine HCl (Hydroxyzine Hcl 25 Mg Tablet) 25 mg PO Q6H PRN PRN Reason: Anxiety Last Admin: 05/21/22 08:50 Dose: 25 mg Magnesium Hydroxide (Milk Of Magnesia 30 Ml Oral.Susp) 30 ml PO DAILY PRN PRN Reason: Constipation Methadone HCl (Methadone Hcl 20 Mg/2 Ml Oral.Conc) 80 mg PO DAILY [facility] Last Admin: 05/21/22 08:47 Dose: 80 mg Mirtazapine (Mirtazapine 15 Mg Tablet) 15 mg PO BEDTIME [facility] Last Admin: 05/20/22 20:15 Dose: 15 mg Nicotine (Nicotine 21 Mg Patch.Td24) 21 mg TRANSDERMA DAILY [facility] Last Admin: 05/21/22 08:47 Dose: 21 mg Nicotine Polacrilex (Nicotine Polacrilex 2 Mg Gum) 4 mg BUCCAL Q2H PRN PRN Reason: Nicotine Cravings Last Admin: 05/21/22 10:33 Dose: 4 mg Oxcarbazepine (Oxcarbazepine 300 Mg Tablet) 300 mg PO BID [facility] Last Admin: 05/21/22 08:47 Dose: 300 mg Sertraline HCl (Sertraline Hcl 100 Mg Tablet) 100 mg PO DAILY [facility] Last Admin: 05/21/22 08:46 Dose: 100 mg Trazodone HCl (Trazodone Hcl 50 Mg Tablet) 50 mg PO BEDTIME MRX1 PRN PRN Reason: Insomnia Last Admin: 05/18/22 20:11 Dose: 50 mg Allergies Allergies Allergy/AdvReac Type Severity Reaction Status Date / Time No Known Allergies Allergy Unverified 10/24/19 17:03 [No Known Allergies*] Assessment & Plan Assessment & Plan (1) Bipolar disorder: Status: Acute Code(s): F31.9 - Bipolar disorder, unspecified (2) Anxiety: Status: Acute Code(s): F41.9 - Anxiety disorder, unspecified Assessment and Plan: Focused exclusively on getting adderall. With support, did agree to take PRN clonidine Plan 37 yo male, hx of bipolar disorder, anxiety, opioid use disorder, currently on Methadone, alcohol use disorder, sober for 10 months with SI due to stopping me ds (he thought he was improved and did not need them), replacing meds with a service animal and experiencing girlfriends relapse and family's use of substances in their home increasing his relapse risk and resulting in SI. Plan: Increase Sertraline to 100 mg daily-pt was taking this at home Increase Gabapentin to 600 mg tid-pt was taking this at home Continue Remeron/Methadone Collateral contact as needed Refer to OP for ongoing med mgt and therapy. 05/19/22 Guanfacine 1 mg HS 05/20/22 Trileptal 300 mg bid Clonidine 0.1 mg bid prn anxiety Urine culture Reason for continued inpatient stay Substantial Risk for: harm to self (no SI) Time Spent With Patient Time: Total time managing care of this patient today 20____ minutes.
[2022-05-21] MEDS: cloNIDine HCL 0.1 MG TABLET PO (11:52)
[2022-05-21 11:53] VITALS: BP 123/66; PULSE 78
[2022-05-21 15:50] VITALS: BP 115/57; PULSE 56
[2022-05-21] MEDS: guanFACINE HCl ER 1 MG TAB.ER.24H PO (19:31)
[2022-05-21] MEDS: Mirtazapine 15 MG TABLET PO (19:31)
[2022-05-22] MEDS: Nicotine 21 MG PATCH.TD24 TRANSDERMA (08:38)
[2022-05-22] MEDS: Gabapentin 300 MG CAPSULE 600 MG PO ×3 (08:38→18:41)
[2022-05-22] MEDS: methADONE HCl 20 MG/2 ML ORAL.CONC 80 MG PO (08:38)
[2022-05-22] MEDS: Sertraline HCL 100 MG TABLET PO (08:38)
[2022-05-22] MEDS: OXcarbazepine 300 MG TABLET PO ×2 (08:38→18:41)
[2022-05-22 08:40] VITALS: BP 125/64; PULSE 65; RESP 18; TEMP 36.7; O2SAT 97
[2022-05-22] MEDS: hydrOXYzine HCL 25 MG TABLET PO ×2 (09:33→16:35)
--- NOTE | 2022-05-22 09:40 | P.PNPSI_ITS ---
Subjective Subjective Date of Service: 05/22/22 Reason For Visit: Major Depressive Disorder Diagnostics Vital Signs (24Hr): Vital Signs - 24 hr 05/21/22 11:53 05/21/22 15:50 05/22/22 08:40 Temperature 98.0 F Pulse Rate 78 56 65 Respiratory Rate 18 Blood Pressure 123/66 115/57 L 125/64 Pulse Oximetry 97 Oxygen Delivery Method Room Air Medications Medications Current Medications Acetaminophen (Acetaminophen 325 Mg Tablet) 650 mg PO Q6H PRN PRN Reason: Headache/Pain Mild Scale (1-3) Al Hydroxide/Mg Hydroxide (Magnesium Hydrox/Alum Hydrox 30 Ml Oral.Susp) 30 ml PO Q6H PRN PRN Reason: Heartburn/Nausea Clonidine HCl (Clonidine Hcl 0.1 Mg Tablet) 0.1 mg PO BID PRN; Protocol PRN Reason: anxiety Last Admin: 05/21/22 11:52 Dose: 0.1 mg Gabapentin (Gabapentin 300 Mg Capsule) 600 mg PO TID [facility] Last Admin: 05/22/22 08:38 Dose: 600 mg Guanfacine HCl (Guanfacine Hcl Er 1 Mg Tab.Er.24h) 1 mg PO BEDTIME [facility] Last Admin: 05/21/22 19:31 Dose: 1 mg Hydroxyzine HCl (Hydroxyzine Hcl 25 Mg Tablet) 25 mg PO Q6H PRN PRN Reason: Anxiety Last Admin: 05/22/22 09:33 Dose: 25 mg Magnesium Hydroxide (Milk Of Magnesia 30 Ml Oral.Susp) 30 ml PO DAILY PRN PRN Reason: Constipation Methadone HCl (Methadone Hcl 20 Mg/2 Ml Oral.Conc) 80 mg PO DAILY [facility] Last Admin: 05/22/22 08:38 Dose: 80 mg Mirtazapine (Mirtazapine 15 Mg Tablet) 15 mg PO BEDTIME [facility] Last Admin: 05/21/22 19:31 Dose: 15 mg Nicotine (Nicotine 21 Mg Patch.Td24) 21 mg TRANSDERMA DAILY [facility] Last Admin: 05/22/22 08:38 Dose: 21 mg Nicotine Polacrilex (Nicotine Polacrilex 2 Mg Gum) 4 mg BUCCAL Q2H PRN PRN Reason: Nicotine Cravings Last Admin: 05/21/22 17:48 Dose: 4 mg Oxcarbazepine (Oxcarbazepine 300 Mg Tablet) 300 mg PO BID [facility] Last Admin: 05/22/22 08:38 Dose: 300 mg Sertraline HCl (Sertraline Hcl 100 Mg Tablet) 100 mg PO DAILY [facility] Last Admin: 05/22/22 08:38 Dose: 100 mg Trazodone HCl (Trazodone Hcl 50 Mg Tablet) 50 mg PO BEDTIME MRX1 PRN PRN Reason: Insomnia Last Admin: 05/18/22 20:11 Dose: 50 mg Allergies Allergies Allergy/AdvReac Type Severity Reaction Status Date / Time No Known Allergies Allergy Unverified 10/24/19 17:03 [No Known Allergies*] Assessment & Plan Assessment & Plan (1) Bipolar disorder: Status: Acute Code(s): F31.9 - Bipolar disorder, unspecified (2) Anxiety: Status: Acute Code(s): F41.9 - Anxiety disorder, unspecified Assessment and Plan: Focused exclusively on getting adderall. With support, did agree to take PRN clonidine Plan 37 yo male, hx of bipolar disorder, anxiety, opioid use disorder, currently on Methadone, alcohol use disorder, sober for 10 months with SI due to stopping meds (he thought he was improved and did not need them), replacing meds with a service animal and experiencing girlfriends relapse and family's use of substances in their home increasing his relapse risk and resulting in SI. Plan: Increase Sertraline to 100 mg daily-pt was taking this at home Increase Gabapentin to 600 mg tid-pt was taking this at home Continue Remeron/Methadone Collateral contact as needed Refer to OP for ongoing med mgt and therapy. 05/19/22 Guanfacine 1 mg HS 05/20/22 Trileptal 300 mg bid Clonidine 0.1 mg bid prn anxiety Urine culture Reason for continued inpatient stay Substantial Risk for: rapid decompensation Time Spent With Patient Time: Total time managing care of this patient today ____ minutes.
--- NOTE | 2022-05-22 09:41 | P.PNPSI_ITS ---
Subjective Subjective Date of Service: 05/22/22 Reason For Visit: Major Depressive Disorder Subjective Notes: Conditional Voluntary Interim History: Accepted that he needs to trial guanfacine before stimulant trial and did well with one time extra dose of gabapentin yesterday. Asking to increase guanfacine to bid today. Reports racing thoughts and concerned that this will continue to interfere with his ability to focus on the job. Medication Compliance: Yes Side effects from medications: No Attending Groups: No Mental Status Exam Mental Status Exam Patient Appearance: Well Grooomed Level of Consciousness: Alert Patient Behavior: Appropriate and Restless Mood Description: Anxious (with racing thoughts) Affect Description: Anxious Speech Pattern: Clear Hallucinations: None Delusions: Not Present Thought Process: Goal Oriented Thought Content: positive for Perseveration Depressive Symptoms: Increased Anxiety and Difficulty Concentrating Judgement: Fair Diagnostics Vital Signs (24Hr): Vital Signs - 24 hr 05/21/22 11:53 05/21/22 15:50 05/22/22 08:40 Temperature 98.0 F Pulse Rate 78 56 65 Respiratory Rate 18 Blood Pressure 123/66 115/57 L 125/64 Pulse Oximetry 97 Oxygen Delivery Method Room Air Medications Medications Current Medications Acetaminophen (Acetaminophen 325 Mg Tablet) 650 mg PO Q6H PRN PRN Reason: Headache/Pain Mild Scale (1-3) Al Hydroxide/Mg Hydroxide (Magnesium Hydrox/Alum Hydrox 30 Ml Oral.Susp) 30 ml PO Q6H PRN PRN Reason: Heartburn/Nausea Clonidine HCl (Clonidine Hcl 0.1 Mg Tablet) 0.1 mg PO BID PRN; Protocol PRN Reason: anxiety Last Admin: 05/21/22 11:52 Dose: 0.1 mg Gabapentin (Gabapentin 300 Mg Capsule) 600 mg PO TID [facility] Last Admin: 05/22/22 08:38 Dose: 600 mg Guanfacine HCl (Guanfacine Hcl Er 1 Mg Tab.Er.24h) 1 mg PO BEDTIME [facility] Last Admin: 05/21/22 19:31 Dose: 1 mg Hydroxyzine HCl (Hydroxyzine Hcl 25 Mg Tablet) 25 mg PO Q6H PRN PRN Reason: Anxiety Last Admin: 05/22/22 09:33 Dose: 25 mg Magnesium Hydroxide (Milk Of Magnesia 30 Ml Oral.Susp) 30 ml PO DAILY PRN PRN Reason: Constipation Methadone HCl (Methadone Hcl 20 Mg/2 Ml Oral.Conc) 80 mg PO DAILY [facility] Last Admin: 05/22/22 08:38 Dose: 80 mg Mirtazapine (Mirtazapine 15 Mg Tablet) 15 mg PO BEDTIME [facility] Last Admin: 05/21/22 19:31 Dose: 15 mg Nicotine (Nicotine 21 Mg Patch.Td24) 21 mg TRANSDERMA DAILY [facility] Last Admin: 05/22/22 08:38 Dose: 21 mg Nicotine Polacrilex (Nicotine Polacrilex 2 Mg Gum) 4 mg BUCCAL Q2H PRN PRN Reason: Nicotine Cravings Last Admin: 05/21/22 17:48 Dose: 4 mg Oxcarbazepine (Oxcarbazepine 300 Mg Tablet) 300 mg PO BID [facility] Last Admin: 05/22/22 08:38 Dose: 300 mg Sertraline HCl (Sertraline Hcl 100 Mg Tablet) 100 mg PO DAILY [facility] Last Admin: 05/22/22 08:38 Dose: 100 mg Trazodone HCl (Trazodone Hcl 50 Mg Tablet) 50 mg PO BEDTIME MRX1 PRN PRN Reason: Insomnia Last Admin: 05/18/22 20:11 Dose: 50 mg Allergies Allergies Allergy/AdvReac Type Severity Reaction Status Date / Time No Known Allergies Allergy Unverified 10/24/19 17:03 [No Known Allergies*] Assessment & Plan Assessment & Plan (1) Bipolar disorder: Status: Acute Code(s): F31.9 - Bipolar disorder, unspecified (2) Anxiety: Status: Acute Code(s): F41.9 - Anxiety disorder, unspecified Assessment and Plan: Focused exclusively on getting adderall. With support, did agree to take PRN clonidine Plan 37 yo male, hx of bipolar disorder, anxiety, opioid use disorder, currently on Methadone, alcohol use disorder, sober for 10 months with SI due to stopping meds (he thought he was improved and did not need them), replacing meds with a service animal and experiencing girlfriends relapse and family's use of substances in their home increasing his relapse risk and resulting in SI. Plan: Increase Sertraline to 100 mg daily-pt was taking this at home Increase Gabapentin to 600 mg tid-pt was taking this at home Continue Remeron/Methadone Collateral contact as needed Refer to OP for ongoing med mgt and therapy. 05/19/22 Guanfacine 1 mg HS 05/20/22 Trileptal 300 mg bid Clonidine 0.1 mg bid prn anxiety Urine culture 05/21/22 No med changes 05/22/22increase gunafacine to bid, Urine culture pending Reason for continued inpatient stay Substantial Risk for: rapid decompensation Time Spent With Patient Time: Total time managing care of this patient today ____ minutes.
[2022-05-22] MEDS: guanFACINE HCl ER 1 MG TAB.ER.24H PO ×2 (09:57→18:41)
[2022-05-22 16:12] VITALS: BP 111/62; PULSE 73
[2022-05-22] MEDS: Nicotine Polacrilex 2 MG GUM 4 MG BUCCAL ×2 (16:35→18:41)
[2022-05-22] MEDS: Mirtazapine 15 MG TABLET PO (18:41)
[2022-05-23 07:50] VITALS: BP 116/61; PULSE 51; RESP 14; TEMP 36.5; O2SAT 96
[2022-05-23] MEDS: Nicotine 21 MG PATCH.TD24 TRANSDERMA (08:37)
[2022-05-23] MEDS: guanFACINE HCl ER 1 MG TAB.ER.24H PO ×3 (08:38→19:51)
[2022-05-23] MEDS: Gabapentin 300 MG CAPSULE 600 MG PO (08:38)
[2022-05-23] MEDS: OXcarbazepine 300 MG TABLET PO ×2 (08:38→19:51)
[2022-05-23] MEDS: methADONE HCl 20 MG/2 ML ORAL.CONC 80 MG PO (08:38)
[2022-05-23] MEDS: Sertraline HCL 100 MG TABLET PO (08:38)
[2022-05-23] MEDS: Nicotine Polacrilex 2 MG GUM 4 MG BUCCAL ×2 (09:41→16:18)
--- NOTE | 2022-05-23 11:08 | HO.PSYCHPN ---
Subjective Subjective Date of Service: 05/23/22 Reason For Visit: Major Depressive Disorder Subjective Notes: Conditional Voluntary Interim History: Feels that guanfacine is not helping focus or agitation but is hesitant to try higher dose. Accepts that I will not be writing stimulant orders. Wants to be on higher dose of gabapentin and wants tablets because he feels that capsules are giving him heartburn. Noted to be relaxed and social with peers when watching basketball yesterday. Some sleep disturbance. Medication Compliance: Yes Side effects from medications: No Attending Groups: No Review of Systems Acute medical concerns: No Mental Status Exam Mental Status Exam Patient Appearance: Well Grooomed Level of Consciousness: Restless Patient Behavior: Appropriate Mood Description: Anxious Speech Pattern: Clear Hallucinations: None Delusions: Not Present Thought Process: Linear Thought Content: positive for Perseveration, negative for Suicidal Ideation or negative for Homicidal Ideation Depressive Symptoms: Difficulty Sleeping and Difficulty Concentrating Judgement: Fair Diagnostics Vital Signs (24Hr): Vital Signs - 24 hr 05/22/22 16:12 05/23/22 07:50 Temperature 97.7 F Pulse Rate 73 51 Respiratory Rate 14 Blood Pressure 111/62 116/61 Pulse Oximetry 96 Oxygen Delivery Method Room Air Medications Medications Current Medications Acetaminophen (Acetaminophen 325 Mg Tablet) 650 mg PO Q6H PRN PRN Reason: Headache/Pain Mild Scale (1-3) Al Hydroxide/Mg Hydroxide (Magnesium Hydrox/Alum Hydrox 30 Ml Oral.Susp) 30 ml PO Q6H PRN PRN Reason: Heartburn/Nausea Clonidine HCl (Clonidine Hcl 0.1 Mg Tablet) 0.1 mg PO BID PRN; Protocol PRN Reason: anxiety Last Admin: 05/21/22 11:52 Dose: 0.1 mg Gabapentin (Gabapentin 300 Mg Capsule) 600 mg PO TID [facility] Last Admin: 05/23/22 08:38 Dose: 600 mg Guanfacine HCl (Guanfacine Hcl Er 1 Mg Tab.Er.24h) 1 mg PO BID [facility] Last Admin: 05/23/22 08:38 Dose: 1 mg Hydroxyzine HCl (Hydroxyzine Hcl 25 Mg Tablet) 25 mg PO Q6H PRN PRN Reason: Anxiety Last Admin: 05/22/22 16:35 Dose: 25 mg Magnesium Hydroxide (Milk Of Magnesia 30 Ml Oral.Susp) 30 ml PO DAILY PRN PRN Reason: Constipation Methadone HCl (Methadone Hcl 20 Mg/2 Ml Oral.Conc) 80 mg PO DAILY [facility] Last Admin: 05/23/22 08:38 Dose: 80 mg Mirtazapine (Mirtazapine 15 Mg Tablet) 15 mg PO BEDTIME [facility] Last Admin: 05/22/22 18:41 Dose: 15 mg Nicotine (Nicotine 21 Mg Patch.Td24) 21 mg TRANSDERMA DAILY [facility] Last Admin: 05/23/22 08:37 Dose: 21 mg Nicotine Polacrilex (Nicotine Polacrilex 2 Mg Gum) 4 mg BUCCAL Q2H PRN PRN Reason: Nicotine Cravings Last Admin: 05/23/22 09:41 Dose: 4 mg Oxcarbazepine (Oxcarbazepine 300 Mg Tablet) 300 mg PO BID [facility] Last Admin: 05/23/22 08:38 Dose: 300 mg Sertraline HCl (Sertraline Hcl 100 Mg Tablet) 100 mg PO DAILY [facility] Last Admin: 05/23/22 08:38 Dose: 100 mg Trazodone HCl (Trazodone Hcl 50 Mg Tablet) 50 mg PO BEDTIME MRX1 PRN PRN Reason: Insomnia Last Admin: 05/18/22 20:11 Dose: 50 mg Allergies Allergies Allergy/AdvReac Type Severity Reaction Status Date / Time No Known Allergies Allergy Unverified 10/24/19 17:03 [No Known Allergies*] Assessment & Plan Assessment & Plan (1) Bipolar disorder: Status: Acute Code(s): F31.9 - Bipolar disorder, unspecified (2) Anxiety: Status: Acute Code(s): F41.9 - Anxiety disorder, unspecified Assessment and Plan: Focused exclusively on getting adderall. With support, did agree to take PRN clonidine Plan 37 yo male, hx of bipolar disorder, anxiety, opioid use disorder, currently on Methadone, alcohol use disorder, sober for 10 months with SI due to stopping meds (he thought he was improved and did not need them), replacing meds with a service animal and experiencing girlfriends relapse and family's use of substances in their home increasing his relapse risk and resulting in SI. Plan: Increase Sertraline to 100 mg daily-pt was taking this at home Increase Gabapentin to 600 mg tid-pt was taking this at home Continue Remeron/Methadone Collateral contact as needed Refer to OP for ongoing med mgt and therapy. 05/19/22 Guanfacine 1 mg HS 4/14/23 Trileptal 300 mg bid Clonidine 0.1 mg bid prn anxiety Urine culture 05/21 No med changes 05/22 increase guanfacine to bid 05/23 increase guanfacine to tid, switch gabapentin to tablets and increase frequency to 4 times per day Reason for continued inpatient stay Substantial Risk for: inability to function Time Spent With Patient Time: Total time managing care of this patient today ____ minutes.
[2022-05-23] MEDS: Gabapentin 600 MG TABLET PO ×3 (12:47→19:50)
[2022-05-23] MEDS: hydrOXYzine HCL 25 MG TABLET PO (16:18)
[2022-05-23] MEDS: Mirtazapine 15 MG TABLET PO (19:50)
[2022-05-24] MEDS: Sertraline HCL 100 MG TABLET PO (08:27)
[2022-05-24] MEDS: OXcarbazepine 300 MG TABLET PO ×2 (08:27→20:07)
[2022-05-24] MEDS: Gabapentin 600 MG TABLET PO ×4 (08:28→20:07)
[2022-05-24] MEDS: methADONE HCl 20 MG/2 ML ORAL.CONC 80 MG PO (08:28)
[2022-05-24] MEDS: guanFACINE HCl ER 1 MG TAB.ER.24H PO (08:28)
[2022-05-24] MEDS: Nicotine 21 MG PATCH.TD24 TRANSDERMA (08:29)
[2022-05-24 08:41] VITALS: BP 111/74; PULSE 104; RESP 16; TEMP 36.6; O2SAT 96
[2022-05-24] MEDS: hydrOXYzine HCL 25 MG TABLET PO (10:04)
[2022-05-24] MEDS: Amphetamine Mixed Salts 10 MG TABLET PO ×2 (10:57→12:57)
--- NOTE | 2022-05-24 12:21 | HO.PSYCHPN ---
Subjective Subjective Date of Service: 05/24/22 Reason For Visit: Major Depressive Disorder Subjective Notes: Conditional Voluntary Healthcare Proxy: No Guardianship: No Medical Problems Affecting Mental Status: No Interim History: Pt focused on treatment of ADHD over the weekend. Guanfacine ineffective. Reports hx of Adderall use- asks to have a trial again. By hx 30 mg bid. Will begin 10 mg bid. 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 Discussed with pt that we could trial this while in pt, however, out patient providers may not want to continue it and supplies are limited due to pandemic shortages. Review of regime, dosages. Denies SE, reports sx decrease and by history has found this regime to be helpful and believes it will be helpful again. Medication Compliance: Yes Side effects from medications: No Attending Groups: Intermittent Review of Systems Acute medical concerns: No Medical Review of Systems: unchanged Mental Status Exam Mental Status Exam Patient Appearance: Appropriate Patient Orientation: Person, Place, Time and Situation Level of Consciousness: Alert Patient Behavior: Appropriate, Talkative, Cooperative, Restless, Anxious, Distractible and Good Eye Contact Mood Description: Anxious, Nervous and Apprehensive Affect Description: Anxious, Nervous and Apprehensive Patient Cognition Impaired: No Ability to Follow Directions: Good Speech Pattern: Spontaneous Speech Memory Description: Intact Hallucinations: None Delusions: Not Present Thought Process: Distracted Thought Content: positive for Circumstantial, positive for Goal Oriented and positive for Suicidal Ideation (denies) Depressive Symptoms: Increased Anxiety, Thoughts of /Suicide (denies) and Difficulty Concentrating Abnormal Motor Activity Signs and Symptoms: Restlessness Judgement: Good Diagnostics Vital Signs (24Hr): Vital Signs - 24 hr 05/24/22 08:41 Temperature 97.8 F Pulse Rate 104 H Respiratory Rate 16 Blood Pressure 111/74 Pulse Oximetry 96 Oxygen Delivery Method Room Air Medications Medications Current Medications Acetaminophen (Acetaminophen 325 Mg Tablet) 650 mg PO Q6H PRN PRN Reason: Headache/Pain Mild Scale (1-3) Al Hydroxide/Mg Hydroxide (Magnesium Hydrox/Alum Hydrox 30 Ml Oral.Susp) 30 ml PO Q6H PRN PRN Reason: Heartburn/Nausea Amphetamine/Dextroamphetamine (Amphetamine Mixed Salts 10 Mg Tablet) 10 mg PO 0800,1400 [facility] Clonidine HCl (Clonidine Hcl 0.1 Mg Tablet) 0.1 mg PO BID PRN; Protocol PRN Reason: anxiety Last Admin: 05/21/22 11:52 Dose: 0.1 mg Gabapentin (Gabapentin 600 Mg Tablet) 600 mg PO QID [facility] Last Admin: 05/24/22 08:28 Dose: 600 mg Hydroxyzine HCl (Hydroxyzine Hcl 25 Mg Tablet) 25 mg PO Q6H PRN PRN Reason: Anxiety Last Admin: 05/24/22 10:04 Dose: 25 mg Magnesium Hydroxide (Milk Of Magnesia 30 Ml Oral.Susp) 30 ml PO DAILY PRN PRN Reason: Constipation Methadone HCl (Methadone Hcl 20 Mg/2 Ml Oral.Conc) 80 mg PO DAILY [facility] Last Admin: 05/24/22 08:28 Dose: 80 mg Mirtazapine (Mirtazapine 15 Mg Tablet) 15 mg PO BEDTIME [facility] Last Admin: 05/23/22 19:50 Dose: 15 mg Multivitamins/Vitamin C (Multivitamin Tablet) 1 tab PO DAILY [facility] Nicotine (Nicotine 21 Mg Patch.Td24) 21 mg TRANSDERMA DAILY [facility] Last Admin: 05/24/22 08:29 Dose: 21 mg Nicotine Polacrilex (Nicotine Polacrilex 2 Mg Gum) 4 mg BUCCAL Q2H PRN PRN Reason: Nicotine Cravings Last Admin: 05/23/22 16:18 Dose: 4 mg Oxcarbazepine (Oxcarbazepine 300 Mg Tablet) 300 mg PO BID [facility] Last Admin: 05/24/22 08:27 Dose: 300 mg Sertraline HCl (Sertraline Hcl 100 Mg Tablet) 100 mg PO DAILY [facility] Last Admin: 05/24/22 08:27 Dose: 100 mg Trazodone HCl (Trazodone Hcl 50 Mg Tablet) 50 mg PO BEDTIME MRX1 PRN PRN Reason: Insomnia Last Admin: 05/18/22 20:11 Dose: 50 mg Allergies Allergies Allergy/AdvReac Type Severity Reaction Status Date / Time No Known Allergies Allergy Unverified 10/24/19 17:03 [No Known Allergies*] Assessment & Plan Assessment & Plan (1) Bipolar disorder: Status: Acute Code(s): F31.9 - Bipolar disorder, unspecified (2) Anxiety: Status: Acute Code(s): F41.9 - Anxiety disorder, unspecified Assessment and Plan: Focused exclusively on getting adderall. With support, did agree to take PRN clonidine Plan 37 yo male, hx of bipolar disorder, anxiety, opioid use disorder, currently on Methadone, alcohol use disorder, sober for 10 months with SI due to stopping meds (he thought he was improved and did not need them), replacing meds with a service animal and experiencing girlfriends relapse and family's use of substances in their home increasing his relapse risk and resulting in SI. Plan: Increase Sertraline to 100 mg daily-pt was taking this at home Increase Gabapentin to 600 mg tid-pt was taking this at home Continue Remeron/Methadone Collateral contact as needed Refer to OP for ongoing med mgt and therapy. 05/19/22 Guanfacine 1 mg HS 05/20/22 Trileptal 300 mg bid Clonidine 0.1 mg bid prn anxiety Urine culture 05/21 No med changes 05/22 increase guanfacine to bid 05/23 increase guanfacine to tid, switch gabapentin to tablets and increase frequency to 4 times per day 05/24/22 discontinue guanfacine Adderall 10 mg bid trial Patient educated on: medication risk/benefits Informed Consent: understands Reason for continued inpatient stay Substantial Risk for: rapid decompensation Time Spent With Patient Time: Total time managing care of this patient today ____ minutes.
[2022-05-24] MEDS: cloNIDine HCL 0.1 MG TABLET PO (13:17)
[2022-05-24] MEDS: Mirtazapine 15 MG TABLET PO (20:07)
--- NOTE | 2022-05-25 | ECG_ITS ---
Test Reason : adhd Blood Pressure : / mmHG Vent. Rate : 070 BPM Atrial Rate : 070 BPM P-R Int : 156 ms QRS Dur : 102 ms QT Int : 422 ms P-R-T Axes : 051 054 061 degrees QTc Int : 455 ms Normal sinus rhythm Normal ECG When compared with ECG of 22-JUL-2020 19:39, Vent. rate has decreased BY 54 BPM Referred By: Mya Huffman Electronically Signed By:CHRISSY VUONG
[2022-05-25 08:35] VITALS: BP 124/76; PULSE 62; RESP 14; TEMP 36.3; O2SAT 96
[2022-05-25] MEDS: OXcarbazepine 300 MG TABLET PO ×2 (08:38→21:24)
[2022-05-25] MEDS: Gabapentin 600 MG TABLET PO ×4 (08:38→21:23)
[2022-05-25] MEDS: Sertraline HCL 100 MG TABLET PO (08:38)
[2022-05-25] MEDS: Amphetamine Mixed Salts 10 MG TABLET PO (08:38)
[2022-05-25] MEDS: Multivitamin TABLET 1 TAB PO (08:38)
[2022-05-25] MEDS: methADONE HCl 20 MG/2 ML ORAL.CONC 80 MG PO (08:39)
[2022-05-25] MEDS: Nicotine 21 MG PATCH.TD24 TRANSDERMA (08:42)
[2022-05-25] MEDS: Amphetamine Mixed Salts 10 MG TABLET 20 MG PO ×2 (13:22→18:10)
--- NOTE | 2022-05-25 15:12 | P.PNPSI_ITS ---
Subjective Subjective Date of Service: 05/25/22 Reason For Visit: Major Depressive Disorder Subjective Notes: Conditional Voluntary Healthcare Proxy: No Guardianship: No Medical Problems Affecting Mental Status: No Interim History: Pt has tolerated re-introduction to Adderall with normal EKG. Will re-titrate dosages to pre admit levels. Will do a weekly refill until pt sees new provider. Discussed with pt that his new provider may not continue this plan and pt verbalized understanding of rationale for this. Pt planning discharge 05/26. [place] issues with peers, issues with team-encouraged by team to submit a complaint so his view may be acknowledged and considered. Several medication questions, expressed anxiety about leaving with anger, creation of conflict and needed refocusing. This is how I say goodbye I think . Medication Compliance: Yes Side effects from medications: No Attending Groups: Intermittent Review of Systems Acute medical concerns: No Medical Review of Systems: unchanged Mental Status Exam Mental Status Exam Patient Appearance: Appropriate Patient Orientation: Person, Place, Time and Situation Level of Consciousness: Alert Patient Behavior: Appropriate, Talkative, Cooperative, Restless, Anxious, Distractible and Good Eye Contact Mood Description: Anxious, Nervous and Apprehensive Affect Description: Anxious, Nervous and Apprehensive Patient Cognition Impaired: No Ability to Follow Directions: Good Speech Pattern: Spontaneous Speech Memory Description: Intact Hallucinations: None Delusions: Not Present Thought Process: Distracted Thought Content: positive for Circumstantial, positive for Goal Oriented and positive for Suicidal Ideation (denies) Depressive Symptoms: Increased Anxiety, Thoughts of /Suicide (denies) and Difficulty Concentrating Abnormal Motor Activity Signs and Symptoms: Restlessness Judgement: Good Diagnostics Vital Signs (24Hr): Vital Signs - 24 hr 05/25/22 08:35 Temperature 97.3 F Pulse Rate 62 Respiratory Rate 14 Blood Pressure 124/76 Pulse Oximetry 96 Oxygen Delivery Method Room Air Medications Medications Current Medications Acetaminophen (Acetaminophen 325 Mg Tablet) 650 mg PO Q6H PRN PRN Reason: Headache/Pain Mild Scale (1-3) Al Hydroxide/Mg Hydroxide (Magnesium Hydrox/Alum Hydrox 30 Ml Oral.Susp) 30 ml PO Q6H PRN PRN Reason: Heartburn/Nausea Amphetamine/Dextroamphetamine (Amphetamine Mixed Salts 10 Mg Tablet) 20 mg PO 0800,1400,1800 DOREEN Last Admin: 05/25/22 13:22 Dose: 20 mg Clonidine HCl (Clonidine Hcl 0.1 Mg Tablet) 0.1 mg PO BID PRN; Protocol PRN Reason: anxiety Last Admin: 05/24/22 13:17 Dose: 0.1 mg Gabapentin (Gabapentin 600 Mg Tablet) 600 mg PO QID [facility] Last Admin: 05/25/22 13:22 Dose: 600 mg Hydroxyzine HCl (Hydroxyzine Hcl 25 Mg Tablet) 25 mg PO Q6H PRN PRN Reason: Anxiety Last Admin: 05/24/22 10:04 Dose: 25 mg Magnesium Hydroxide (Milk Of Magnesia 30 Ml Oral.Susp) 30 ml PO DAILY PRN PRN Reason: Constipation Methadone HCl (Methadone Hcl 20 Mg/2 Ml Oral.Conc) 80 mg PO DAILY [facility] Last Admin: 05/25/22 08:39 Dose: 80 mg Mirtazapine (Mirtazapine 15 Mg Tablet) 15 mg PO BEDTIME [facility] Last Admin: 05/24/22 20:07 Dose: 15 mg Multivitamins/Vitamin C (Multivitamin Tablet) 1 tab PO DAILY [facility] Last Admin: 05/25/22 08:38 Dose: 1 tab Nicotine (Nicotine 21 Mg Patch.Td24) 21 mg TRANSDERMA DAILY [facility] Last Admin: 05/25/22 08:42 Dose: 21 mg Nicotine Polacrilex (Nicotine Polacrilex 2 Mg Gum) 4 mg BUCCAL Q2H PRN PRN Reason: Nicotine Cravings Last Admin: 05/23/22 16:18 Dose: 4 mg Oxcarbazepine (Oxcarbazepine 300 Mg Tablet) 300 mg PO BID [facility] Last Admin: 05/25/22 08:38 Dose: 300 mg Sertraline HCl (Sertraline Hcl 100 Mg Tablet) 100 mg PO DAILY [facility] Last Admin: 05/25/22 08:38 Dose: 100 mg Trazodone HCl (Trazodone Hcl 50 Mg Tablet) 50 mg PO BEDTIME MRX1 PRN PRN Reason: Insomnia Last Admin: 05/18/22 20:11 Dose: 50 mg Allergies Allergies Allergy/AdvReac Type Severity Reaction Status Date / Time No Known Allergies Allergy Unverified 10/24/19 17:03 [No Known Allergies*] Assessment & Plan Assessment & Plan (1) Bipolar disorder: Status: Acute Code(s): F31.9 - Bipolar disorder, unspecified (2) Anxiety: Status: Acute Code(s): F41.9 - Anxiety disorder, unspecified Assessment and Plan: Focused exclusively on getting adderall. With support, did agree to take PRN clonidine Plan 37 yo male, hx of bipolar disorder, anxiety, opioid use disorder, currently on Methadone, alcohol use disorder, sober for 10 months with SI due to stopping meds (he thought he was improved and did not need them), replacing meds with a service animal and experiencing girlfriends relapse and family's use of substances in their home increasing his relapse risk and resulting in SI. Plan: Increase Sertraline to 100 mg daily-pt was taking this at home Increase Gabapentin to 600 mg tid-pt was taking this at home Continue Remeron/Methadone Collateral contact as needed Refer to OP for ongoing med mgt and therapy. 05/19/22 Guanfacine 1 mg HS 05/20/22 Trileptal 300 mg bid Clonidine 0.1 mg bid prn anxiety Urine culture 05/21 No med changes 05/22 increase guanfacine to bid 05/23 increase guanfacine to tid, switch gabapentin to tablets and increase frequ ency to 4 times per day 05/24/22 discontinue guanfacine Adderall 10 mg bid trial 05/25/22 Discharge 05/26. Adderall re-titration. EKG WNL, without adverse effect Patient educated on: medication risk/benefits Informed Consent: understands Reason for continued inpatient stay Substantial Risk for: rapid decompensation Time Spent With Patient Time: Total time managing care of this patient today ____ minutes.
[2022-05-25 16:30] VITALS: BP 136/72; PULSE 87; TEMP 36.4
[2022-05-25] MEDS: hydrOXYzine HCL 25 MG TABLET PO (18:09)
[2022-05-25] MEDS: Mirtazapine 15 MG TABLET PO (21:23)
[2022-05-25 22:14] LABS: Amphetamine Screen Urine Not Detected (Not Detect); Barbiturates, Urine Not Detected (Not Detect); Benzodiazepines Screen Urine Not Detected (Not Detect); Cannabinoid Screen Urine Not Detected (Not Detect); Cocaine Screen Urine Not Detected (Not Detect); Fentanyl, urine Not Detected (Not Detect); Opiate Screen Urine Not Detected (Not Detect); Phencyclidine Screen Urine Not Detected (Not Detect)
[2022-05-26] MEDS: Gabapentin 600 MG TABLET PO (08:21)
[2022-05-26] MEDS: methADONE HCl 20 MG/2 ML ORAL.CONC 80 MG PO (08:21)
[2022-05-26] MEDS: Sertraline HCL 100 MG TABLET PO (08:21)
[2022-05-26] MEDS: Multivitamin TABLET 1 TAB PO (08:21)
[2022-05-26] MEDS: OXcarbazepine 300 MG TABLET PO (08:21)
[2022-05-26] MEDS: Amphetamine Mixed Salts 10 MG TABLET 20 MG PO (08:21)
[2022-05-26 09:04] VITALS: BP 130/86; PULSE 92; RESP 15; TEMP 36.1; O2SAT 96
--- NOTE | 2022-05-26 13:17 | PM.PSYDC ---
DS: Providers Provider Date of Service: 05/26/22 Date of admission: 05/17/22 20:29 Date of discharge: 05/26/22 Primary care physician: Maria Esther Palacio NP Admitting clinician: Mya Huffman Attending physician on admission: Tucker Devi Consults: 05/17/22 18:31 Consult to Hospitalist Routine Comment: Consulting Provider: Hospitalist Reason For Exam: Transfer from [facility] Attending physician on discharge: Tucker Devi Discharging clinician: Mya Huffman DS: Diagnosis Discharge Diagnosis (1) Bipolar disorder: Status: Acute (2) Anxiety: Status: Resolved DS: Medications Discharge Medications Home Medications: Home Medications Medication Instructions Recorded Confirmed methadone 10 mg/mL oral concentrate 80 mg PO DAILY 05/18/22 05/18/22 Previous Rx's Medication Instructions Recorded cephalexin 500 mg capsule 500 mg PO Q12H 7 days #14 caps 10/05/20 doxycycline hyclate 100 mg tablet 100 mg PO BID 7 days #14 tabs 10/05/20 nicotine 21 mg/24 hr daily 21 mg transdermal DAILY #30 ea 05/19/22 transdermal patch dextroamphetamine-amphetamine 30 30 mg PO BID #14 tabs 05/26/22 mg tablet (Adderall) gabapentin 600 mg tablet 600 mg PO QID #60 tabs 05/26/22 gabapentin 600 mg tablet 600 mg PO QID #60 tabs 05/26/22 mirtazapine 15 mg tablet 15 mg PO BEDTIME #15 tabs 05/26/22 multivitamin (Daily-Viji tablet) 1 tab PO DAILY #30 tabs 05/26/22 nicotine (polacrilex) 2 mg gum 4 mg buccal Q2H PRN Nicotine 05/26/22 Cravings #60 ea oxcarbazepine 300 mg tablet 300 mg PO BID #30 tabs 05/26/22 sertraline 100 mg tablet 100 mg PO DAILY #15 tabs 05/26/22 Mental Status Exam Mental Status Exam Patient Appearance: Appropriate Patient Orientation: Person, Place, Time and Situation Level of Consciousness: Alert Patient Behavior: Appropriate, Talkative, Cooperative, Restless, Anxious, Distractible and Good Eye Contact Mood Description: Anxious, Nervous and Apprehensive Affect Description: Anxious, Nervous and Apprehensive Patient Cognition Impaired: No Ability to Follow Directions: Good Speech Pattern: Spontaneous Speech Memory Description: Intact Hallucinations: None Delusions: Not Present Thought Process: Distracted Thought Content: positive for Circumstantial, positive for Goal Oriented and positive for Suicidal Ideation (denies) Depressive Symptoms: Increased Anxiety, Thoughts of /Suicide (denies) and Difficulty Concentrating Abnormal Motor Activity Signs and Symptoms: Restlessness Judgement: Good Data Data Completed and Pending Completed studies during hospitalization [Text1]: 05/25/22 21:30 Urine Opiates Screen Not Detected Urine Fentanyl Screen Not Detected Ur Barbiturates Screen Not Detected Ur Phencyclidine Scrn Not Detected Ur Amphetamines Screen Not Detected U Benzodiazepines Scrn Not Detected Urine Cocaine Screen Not Detected U Marijuana (THC) Screen Not Detected 05/21/22 10:13 Urine clean catch - Clean Catch Midstream Urine Culture - Final No growth. DS: Summary Hospital Course Hospital Course: Admission to adult psychiatry for exacerbation of bipolar disorder , depressed, ADHD. Pt on standing dose of Methadone 80 mg daily which was maintained. Pt had been off medications for quite some time due to lack of provider connections. Previous effective regime was re-established, Sertraline, Mirtazapine, Gabapentin. Trileptal was added, effective, however pt chose to stop on discharge. Guanfacine was trialed briefly, however pt refused the trial to be continued and returned to Adderal. 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 A supply of ADHD medications will be sent in weekly until he has his psychopharmacology appointment. Time spent discussing smoking cessation with patient: 3 to 10 minutes Status at Discharge Functional status at discharge: independent ambulation Overall status at discharge: patient is progressing back to baseline Time Spent with Patient Time attestation: Total time managing care of this patient today ____ minutes. Time spent: Greater than 30 minutes Discharge Plan Discharge Anticipated Discharge Date/Time: 05/20/22 12:01 Patient Disposition: Home, Self-Care Discharge Diagnosis: Bipolar Disorder, Depressed Referrals: [facility] Intake Rosangela Avalos [Other] - 05/27/22 1:00 pm (In person) [facility] Psyche Eval. Konstantin Calderon [Other] - 06/20/22 4:10 pm (Telehealth) [facility] Med Manage Konstantin Calderon [Other] - 07/20/22 2:15 pm (Telehealth) Health Care Resource [facility] [Other] - 05/27/22 9:00 am (When you go to the clinic on Monday, bring your last does letter and your discharge packet and be there no later than 11:15am. ) Maria Esther Palacio, MICROBIOLOGY COORDINATOR [Primary Care Provider] - 1 Week (PT. STATES HE HAS AN APPOINTMENT ALREADY BUT PT. REFUSED TO LET US CALL TO CONFIRM APPOINTMENT.) Discharge Medications: New nicotine 21 mg/24 hr Patch 24 Hour 21 mg transdermal DAILY Qty: 30 0RF nicotine (polacrilex) 2 mg Gum 4 mg buccal Q2H PRN (Reason: Nicotine Cravings) Qty: 60 0RF multivitamin [Daily-Viji] Tablet 1 tab PO DAILY Qty: 30 0RF gabapentin 600 mg Tablet 600 mg PO QID Qty: 60 1RF sertraline 100 mg Tablet 100 mg PO DAILY Qty: 15 1RF oxcarbazepine 300 mg Tablet 300 mg PO BID Qty: 30 1RF mirtazapine 15 mg Tablet 15 mg PO BEDTIME Qty: 15 1RF gabapentin 600 mg tablet 600 mg PO QID Qty: 60 1RF dextroamphetamine-amphetamine [Adderall] 30 mg tablet 30 mg PO BID Qty: 14 0RF Rx Instructions: administer doses at least 4-6 hours apart; Partial Fill upon patient request. dextroamphetamine-amphetamine [Adderall] 30 mg tablet 30 mg PO BID Qty: 14 0RF Rx Instructions: administer doses at least 4-6 hours apart; Partial Fill upon patient request. Continued doxycycline hyclate 100 mg tablet 100 mg PO BID 7 Days Qty: 14 0RF cephalexin 500 mg capsule 500 mg PO Q12H 7 Days Qty: 14 0RF methadone 10 mg/mL Concentrate 80 mg PO DAILY Discharge Orders: Discharge Order (Routine); Ordered 05/26/22 Ordered By: Mya Huffman Diet: Advance to usual diet Activity on Discharge: As tolerated Stand Alone Forms: Patient Portal Discharge page, Community Support Care Plan Goals: Mood and Behavioral Stabilization Health Concerns: Mood and Behavioral Stabilization Plan of Treatment: Attend scheduled appointments Take medications as directed Call/Return as needed Assessment: Pt interviewed prior to discharge and found to be fully oriented and without any SI/HI. Pt has insight and demonstrates good judgment in terms of wanting to pursue treatment. Pt is not in imminent risk of harm to self or others and has a safety plan that includes presenting to the closest ER or calling 911 if feeling unsafe. Pt has been observed closely by nursing and unit staff throughout admission. Pt has not engaged in any behaviors that suggest dangerousness to self or others and has demonstrated appropriate behaviors and impulse control. Discharge Date/Time: 05/26/22 11:05
== END 2022-05-26 11:05 | disposition home or self-care (01) | DRG 753 ==
PROVIDERS: Psychiatry & Neurology Psychiatry; Admitting Provider Psychiatry & Neurology Psychiatry; PCP Nurse Practitioner Family; Visit Provider Clinical Nurse Specialist Psychiatric/Mental Health, Adult
DX: F31.9 Bipolar disorder, unspecified (principal); R45.851 Suicidal ideations; F11.20 Opioid dependence, uncomplicated; F90.9 Attention-deficit hyperactivity disorder, unspecified type; F41.1 Generalized anxiety disorder; F17.210 Nicotine dependence, cigarettes, uncomplicated; Z71.6 Tobacco abuse counseling; Z79.899 Other long term (current) drug therapy
CPT/HCPCS: 36415; 80061; 80307; 82607; 82746; 83036; 83735; 84439; 84443; 87086; 93005

== ENCOUNTER 2024-05-17 04:45 | Emergency (ER) | payer MEDICAID, SELFPAY ==
--- NOTE | 2024-05-17 | ECG_ITS ---
Test Reason : BED SEARCH Blood Pressure : */* mmHG Vent. Rate : 65 BPM Atrial Rate : 65 BPM P-R Int : 148 ms QRS Dur : 100 ms QT Int : 436 ms P-R-T Axes : 45 79 70 degrees QTcB Int : 453 ms Normal sinus rhythm ST elevation, consider early repolarization Borderline ECG When compared with ECG of 25-May-2022 09:50, T wave amplitude has increased in Inferior leads Nonspecific T wave abnormality no longer evident in Lateral leads Referred By: Nelly Madden Electronically Signed By: Salinas Wilkinson
[2024-05-17 04:53] VITALS: BP 131/80; PULSE 86; RESP 18; TEMP 36.4; O2SAT 95; BMI 24.1
[2024-05-17 05:41] LABS: MANUAL DIFF FLAG NO
[2024-05-17 05:42] LABS: Basophils Absolute Auto 0.1 X10*3/uL (0.0-0.2); Basophils Percent Auto 0.6 % (0-2); Eosinophils Absolute Auto 0.1 X10*3/uL (0.0-0.4); Eosinophils Percent Auto 1.5 % (0-4); Hematocrit 39.8 % (42.0-52.0); Hemoglobin 14.1 g/dl (14.0-18.0); Imm Gran Abs Auto 0.02 X10*3/uL (0.00-0.03); Imm Gran Pct Auto 0.2 % (0.0-0.4); Lymphocytes Absolute Auto 2.3 X10*3/uL (1.2-4.9); Lymphocytes Percent Auto 23.9 % (20-40); Mean Corpuscular HGB Conc 35.4 g/dl (31.0-36.0); Mean Corpuscular Hemoglobin 28.2 pg (27.0-33.0); Mean Corpuscular Volume 79.6 fL (80.0-98.0); Mean Platelet Volume 8.6 fL (9.4-12.4); Monocytes Percent Auto 10.1 % (2-11); Neutrophils Absolute Auto 6.1 x10*3/uL (2.0-8.3); Neutrophils Percent Auto 63.7 % (45-73); Platelet Count 259 X10*3/uL (160-400); Red Cell Distribution Width 12.6 % (11.0-16.0); White Blood Count 9.6 X10*3/uL (4.8-10.8)
[2024-05-17 06:08] LABS: Acetaminophen LAB < 3 mcg/mL (<30); Alanine Aminotransferase 38 U/L (0-40); Albumin Level 4.3 g/dL (3.5-5.0); Alkaline Phosphatase 50 U/L (39-117); Anion Gap 16 (12-20); Aspartate Amino Transferase 65 U/L (5-37); Blood Urea Nitrogen 23 mg/dL (9-16); Calcium 9.4 mg/dL (8.4-10.2); Carbon Dioxide 24 mmol/L (22-29); Chloride 101 mmol/L (96-108); Creatinine Clr Calc Pharmacy 113.3; Estimated Glomerular Filt Rate > 60; Ethanol < 10 mg/dL; Glucose Random 108 mg/dL (60-115); Potassium 3.6 mmol/L (3.3-5.1); Salicylate < 5.0 mg/dL (15-30); Sodium 137 mmol/L (135-145); Total Protein 6.8 g/dL (6.5-8.0)
[2024-05-17 06:09] LABS: COVID-19 Test Negative (Negative); IDNOW Serial# 58CA691E
--- OUTSIDE RECORDS SUMMARY | 2024-05-17 06:32 | XMS_ITS | Patient Health Record ---
Author Organization [facility] Address [address] [place] [address] [id number] Care Team Providers Care Assembler Sandal Parts Name Role Phone Yvette Tera Primary Care Provider [facility], Nursing Unavailable [phone] Allergies No Known Allergies Results Component Value Reference Range Notes COMPREHENSIVE METABOLIC PANE L Reviewed date:04/24/2024 09:47:48 AM Interpretation:Normal Performing Lab: Notes/Report: Sodium 136 133-145 mmol/L Potassium 3.9 3.5-5.5 mmol/L Chloride 103 96-110 mmol/L CO2 26 21-32 mmol/L Anion Gap 7 3-11 Glucose 91 70-100 mg/dL BUN 22 5-25 mg/dL Creatinine 1.01 0.70-1.30 mg/dL eGFR 98 >=60 mL/min/1.73m2 Calculati on based on the Chronic Kidney Disease Epidemiology Collaboration (CKD-EPI) equation refit without adjustment for race. BUN/Creatinine Ratio 21.8 Calcium 9.2 8.5-10.5 mg/dL AST (SGOT) 23 10-42 unit/L ALT (SGPT) 20 10-60 unit/L Alkaline Phosphatase 61 42-121 unit/L Total Protein 7.2 6.0-8.0 g/dL Albumin 4.0 3.2-5.0 g/dL Total Bilirubin 0.8 0.0-1.4 mg/dL HEPATITIS C ANTIBODY Reviewed date:04/24/2024 10:04:29 AM Interpretation:Positive Performing Lab: Notes/Report: Hepatitis C Antibody Positive Negative If conf irmation of this positive HCV Ab screening test is needed, please redraw and order HCV Viral Load. Note--> This test may not be added on due to different specimen requirements. CHLAMYDIA DNA URINE Reviewed date:07/13/2023 09:13:21 AM Interpretation:Negative Performing Lab: Notes/Report: Original Ordering Provider: BRISSA ESPINO APRN CHLAMYDIA DNA URINE NEGATIVE NEGATIVE GC DNA URINE Reviewed date:07/13/2023 09:13:14 AM Interpretation:Negative Performing Lab: Notes/Report: Dana Translation, [place] [address] [employer] - Kayla Cummings MD GC DNA URINE NEGATIVE NEGATIVE HEPATITIS C VIRUS SCREEN Reviewed date:07/13/2023 05:49:01 PM Interpretation: Performing Lab: Notes/Report: Dana Translation, [place] [address] [employer] - Kayla Cummings MD HEPATITIS C VIRUS SCREEN POSITIVE NEGATIVE If confirmation of this positive HCV Ab screening test is needed, please redraw and order HCV Viral Load. Note--> This test may not be added on due to different specimen requirements. HIV 1 AND 2 ANTIBODY SCREEN Reviewed date:07/13/2023 09:14:10 AM Interpretation:Negative Performing Lab: Notes/Report: HIV 1 AND 2 SCREEN NEGATIVE NEGATIVE This assay is a 4th generation assay allowing for earlier detection of HIV infection by detecting the presence of the HIV-1 p24 antigen as well as the traditional antibodies to HIV type 1 (including group O) and type 2. Use of a 4th generation assay is the current CDC recommendation for HIV screening. TREPONEMAL AB Reviewed date:07/13/2023 09:12:47 AM Interpretation:Negative Performing Lab: Notes/Report: Original Ordering Provider: BRISSA ESPINO APRN TREPONEMAL AB NEGATIVE NEGATIVE CBC WITH AUTO DIFFERENTIAL Reviewed date:04/24/2024 09:47:02 AM Interpretation:Normal Performing Lab: Notes/Report: WBC 10.4 4.8-10.8 K/mcL RBC 5.10 4.50-5.50 M/mcL Hemoglobin 14.3 13.5-17.5 g/dL Hematocrit 42.9 42.0-54.0 % MCV 83.8 79.0-98.0 FL MCH 27.9 27.0-32.0 pcg MCHC 33.3 32.0-37.0 g/dL RDW 12.8 11.0-15.0 % Platelets 285 130-400 K/mcL MPV 9.4 7.0-11.0 FL NRBC 0.0 <1.0 % NRBC Absolute 0.00 <0.10 K/mcL Neutrophils Relative 64.1 Lymphocytes Relative 26.2 Monocytes Relative 7.2 Eosinophils Relative 1.5 Basophils Relative 0.7 Immature Granulocytes Relative 0.3 Neutrophils Absolute 6.63 1.50-7.00 K/mcL Lymphocytes Absolute 2.71 1.00-5.00 K/mcL Monocytes Absolute 0.75 0.20-1.00 K/mcL Eosinophils Absolute 0.16 0.00-0.50 K/mcL Basophils Absolute 0.07 0.00-0.20 K/mcL Immature Granulocytes Absolute 0.03 0.00-0.03 K/mcL THYROID STIMULATING HORMONE WITH REFLEX TO FREE T4 AND FREE T3 Reviewed date:04/24/2024 11:49:42 AM Interpretation:5.53 Performing Lab: Notes/Report: TSH 5.53 0.40-4.00 mcIU/mL TREPONEMA PALLIDUM ANTIBODY WITH REFLEX TO RPR AND PARTICLE AGGLUTINATION Reviewed date:04/24/2024 11:49:19 AM Interpretation:Negative Performing Lab: Notes/Report: T. Pallidum Antibodies Negative Negative HIV 1, 2 ANTIBODY, P24 ANTIG EN WITH REFLEX TO DIFFERENTIATION Reviewed date:04/24/2024 09:46:33 AM Interpretation:Negative Performing Lab: Notes/Report: This assay is a 4th generation assay allowing for earlier detection of HIV infection by detecting the presence of the HIV-1 p24 antigen as well as the traditional antibodies to HIV type 1 (including group O) and type 2. Use of a 4th generation assay is the current CDC recommendation for HIV screening. HIV Combo AB/AG Negative Negative CHLAMYDIA TRACHOMATIS AND NE ISSERIA GONORRHOEAE MOLECULAR STUDY Reviewed date:04/24/2024 05:46:55 PM Interpretation:Negative Performing Lab: Notes/Report: Neisseria gonorrhoeae PCR Negative Negative Chlamydia trachomatis PCR Negative Negative FREE THYROXINE WITH REFLEX T O FREE TRIIODOTHYRONINE Reviewed date:04/24/2024 09:46:13 AM Interpretation:Normal Performing Lab: Notes/Report: Free T4 1.46 0.70-1.80 ng/dL TRIIODOTHYRONINE FREE Reviewed date:04/24/2024 11:49:10 AM Interpretation:432 Performing Lab: Notes/Report: T3, Free 432 230-420 pcg/dL AST, ALT, BILIRUBIN ELR STAT E REPORTABLES Reviewed date:04/24/2024 09:46:24 AM Interpretation:Normal Performing Lab: Notes/Report: ALT (SGPT) 20 10-60 unit/L AST (SGOT) 23 10-42 unit/L Total Bilirubin 0.8 0.0-1.4 mg/dL Platelets 285 TISSUE TRANSGLUTAMINASE, IGA Reviewed date:04/24/2024 05:27:48 PM Interpretation:Negative Performing Lab: Notes/Report: Tissue Transglutaminase Ab, IgA Quant 1 <4 unit/mL Tissue Transglutaminase Ab, IgA Negative Negative TISSUE TRANSGLUTAMINASE, IGG Reviewed date:04/25/2024 10:16:13 PM Interpretation:Negative Performing Lab: Notes/Report: Performed at: [address] [place] [address] [id number] Telecommunications Manager: Kenia Cruz MD, Phone: [phone] t-Transglutaminase (tTG) IgG <2 0-5 U/mL Negative 0 - 5 Weak Positive 6 - 9 Positive >9 Reason For Referral No Information Medications Medication SIG (Take, Route, Fr equency, Duration) Notes Start Date End Date Status Adderall 10 mg 1 tab(s) orally daily at noon; for 30 days for 04/28/24 04/23/2024 Active Adderall 30 mg 1 tab(s) orally 2 times a day; for 30 days for 04/28/24 04/23/2024 Active nicotine 4 mg 1 GUM chewed every 2 hours; cinnamon flavor preferred for 30 days Active nicotine 21 mg/24 hr 1 PATCH transdermal ly once a day for 28 days 09/26/2023 Active gabapentin 600 mg 1 tab(s) orally 3 ti mes a day for 30 days Active mirtazapine 15 mg 1 tab(s) orally once a day (at bedtime) for 30 days Active Immunizations Vaccine Route Administration Date Status Comme nts Td Unknown 04/16/2010 Administered PPD negative Unknown 04/16/2010 Administered 0mm Negati v [place] 03/2011 Influenza Unknown 11/07/2011 Administered PPSV 23 IM Intramuscular 05/04/2018 Administered NDC 00 [id number] Menigococcal MCV4 (<55) IM Intramuscular 05/04/2018 Administered ND [id number] Tdap IM Intramuscular 05/28/2018 Administered Influenza IM Intramuscular 12/06/2019 Administered Social History Tobacco Use: Social History Observation Description Date Details (start date - stop date) Former Smoker NA - NA Sex Assigned At : Social History Observation Description Sex Assigned At Male Tobacco Use Assessment MU Question Answer Notes What is your current smoking status? former smok er Problems Problem Type SNOMED Code ICD Code Onset Dates Problem Status W/U Status Risk Notes Problem Anogenital warts (168747217) Anogenital (venereal) warts (A63.0) Active confirmed Problem Chronic hepatitis C (764327043) Chronic viral hepatitis C (B18.2) Active confirmed Problem Human papillomavirus (7997676) Papillomavirus as the cause of diseases classified elsewhere (B97.7) Active confirmed Problem Subclinical iodine deficiency hypothyroidism (disorder) (205400416) Subclinical iodine-deficiency hypothyroidism (E02) Active confirmed Problem Overweight (358331908) Overweight (E66.3) Active confirmed Problem Opioid dependence in remission (854093551) Opioid dependence, in remission (F11.21) Active confirmed Problem Tobacco user (668581180) Nicotine dependence, cigarettes, uncomplicated (F17.210) Active confirmed Problem Tobacco user (042690941) Nicotine dependence, other tobacco product, uncomplicated (F17.290) Active confirmed Problem Recurrent major depression (09982184) Major depressive disorder, recurrent, unspecified (F33.9) Active confirmed Problem Anxiety disorder (714023671) Anxiety disorder, unspecified (F41.9) Active confirmed Problem Insomnia (394705027) Insomnia, unspecified (G47.00) Active confirmed Problem 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) Active confirmed Problem 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 Problem Attention deficit hyperactivity disorder, predominantly inattentive type (disorder) (99263609) Attention and concentration deficit (R41.840) Active confirmed Problem BMI 25-29 - overweight (168646452) Body mass index (BMI) 25.0-25.9, adult (Z68.25) Active confirmed Vital Signs Temperature 97.5 degrees Fahrenheit 04/23/2024 Blood pressure diastolic 70 04/23/2024 Oximetry 98 04/23/2024 Height 72 in 04/23/2024 Blood pressure systolic 109 04/23/2024 Weight 175 lbs 04/23/2024 BMI 23.73 kg/m2 04/23/2024 Encounters Encounter Location Date Provider Diagnosis [address] [id number] 07/11/2023 Tera Crawford Encounter for screening for COVID-19 Z11.52 ; Nicotine dependence, cigarettes, uncomplicated F17.210 ; Encounter for screening for infections with a predominantly sexual mode of transmission Z11.3 ; Anogenital (venereal) warts A63.0 ; Major depressive disorder, recurrent, unspecified F33.9 and Attention and concentration deficit R41.[address] [id number] 12/26/2023 Tera Crawford Nicotine dependence, other tobacco product, uncomplicated F17.290 ; Anxiety disorder, unspecified F41.9 ; Encounter for screening for COVID-19 Z11.52 and Attention and concentration deficit R41.[address] [id number] 04/23/2024 Tera Crawford Encounter for screening for COVID-19 Z11.52 ; Abnormal weight loss R63.4 ; Subclinical iodine-deficiency hypothyroidism E02 ; Encounter for screening for infections with a predominantly sexual mode of transmission Z11.3 ; Attention and concentration deficit R41.840 and Nicotine dependence, cigarettes, uncomplicated F17.[address] [id number] 09/25/2023 Tera Crawford [address] [id number] 05/23/2023 Tera Crawford Attention and concentration deficit R41.[address] [id number] 06/22/2023 Tera Crawford Attention and concentration deficit R41.[address] [id number] 07/24/2023 Tera Crawford Attention and concentration deficit R41.840 and Attention and concentration deficit R41.[address] [id number] 07/25/2023 Tera Balder [facility] [address] [place] [address] [id number] 08/21/2023 Tera Balder Attention and concentration deficit R41.[address] [id number] 09/26/2023 Tera Balder [address] [id number] 09/26/2023 Tera Balder Attention and concentration deficit R41.[address] [id number] 10/25/2023 Tera Balder Attention and concentration deficit R41.840 [facility] [address] [place] [address] [id number] 10/26/2023 Tera Balder [facility] [address] [place] [address] [id number] 11/22/2023 Tera Balder [facility] [address] [place] [address] [id number] 11/23/2023 Tera Balder Attention and concentration deficit R41.[address] [id number] 01/25/2024 Tera Balder Attention and concentration deficit R41.[address] [id number] 02/23/2024 Tera Balder Attention and concentration deficit R41.[address] [id number] 03/26/2024 Tera Balder [address] [id number] 03/29/2024 Tera Balder Attention and concentration deficit R41.[address] [id number] 04/24/2024 Tera Balshaina Assessments Encounter Date Diagnosis (ICD Code) Assessment Notes Treat ment Notes Treatment Clinical Notes 07/11/2023 Nicotine dependence, cigarettes, uncomplicated (ICD-10 - F17.210) 6 moinmutre discussion of risks and ways to stop. had bad expeience with Chantix and wnts to add on nicotine gum 07/11/2023 Encounter for screening for COVID-19 (ICD-10 - Z11.52) Covid screening is negative. Discussed in detail with patient how to practice social distancing by avoiding public spaces and crowds now, wearing a mask in public to keep nose and mouth covered, and washing hands frequently especially before eating and after using the bathroom. Return to clinic if you develop any symtpoms of concern to be rescreened or go to the emergency room if you are having concerning symptoms for COVID-19. 12/26/2023 Nicotine dependence, other tobacco product, uncomplicated (ICD-10 - F17.290) We disvcusse nicotine issue for 5 minutes. He is not getting very far with NRT although admits it decreased his vaping. has lots of contacts who vape and stimulates his use. He is dispapointed in hiumself for vaping. I asked him to look at the succsessful weeks and not mentally beat himself up. Also suggetsed he consider acupuncture or hypnosis as pharm rx not getting himwhere he wnats to be. he jake think about this 12/26/2023 Anxiety disorder, unspecified (ICD-10 - F41.9) All in all clinically stable 04/23/2024 Abnormal weight loss (ICD-10 - R63.4) States eatiung alot adn losing Hyperthyori din diferental; also celiac even without bowel sx. Labs ordered. if nil, then maybe GI and also food diary 04/23/2024 Encounter for screening for COVID-19 (ICD-10 - Z11.52) Covid screening is negative. Discussed in detail with patient how to practice social distancing by avoiding public spaces and crowds now, wearing a mask in public to keep nose and mouth covered, and washing hands frequently especially before eating and after using the bathroom. Return to clinic if you develop any symtpoms of concern to be rescreened or go to the emergency room if you are having concerning symptoms for COVID-19. 05/23/2023 Attention and concentration deficit (ICD-10 - R41.840) 06/22/2023 Attention and concentration deficit (ICD-10 - R41.840) 07/24/2023 Attention and concentration deficit (ICD-10 - R41.840) 07/24/2023 Attention and concentration deficit (ICD-10 - R41.840) 08/21/2023 Attention and concentration deficit (ICD-10 - R41.840) 09/26/2023 Attention and concentration deficit (ICD-10 - R41.840) 10/25/2023 Attention and concentration deficit (ICD-10 - R41.840) 11/23/2023 Attention and concentration deficit (ICD-10 - R41.840) 01/25/2024 Attention and concentration deficit (ICD-10 - R41.840) 02/23/2024 Attention and concentration deficit (ICD-10 - R41.840) 03/29/2024 Attention and concentration deficit (ICD-10 - R41.840) 07/11/2023 Encounter for screening for infections with a predominantly sexual mode of transmission (ICD-10 - Z11.3) Ne wpartner and nats testing. No current sx 12/26/2023 Encounter for screening for COVID-19 (ICD-10 - Z11.52) Covid screening is negative. Discussed in detail with patient how to practice social distancing by avoiding public spaces and crowds now, wearing a mask in public to keep nose and mouth covered, and washing hands frequently especially before eating and after using the bathroom. Return to clinic if you develop any symtpoms of concern to be rescreened or go to the emergency room if you are having concerning symptoms for COVID-19. 04/23/2024 Subclinical iodine-deficiency hypothyroidism (ICD-10 - E02) ordering thryoid labs 07/11/2023 Anogenital (venereal) warts (ICD-10 - A63.0) states has cleared 12/26/2023 Attention and concentration deficit (ICD-10 - R41.840) Doing well with concentration and will continue current dosing 04/23/2024 Encounter for screening for infections with a predominantly sexual mode of transmission (ICD-10 - Z11.3) 07/11/2023 Major depressive disorder, recurrent, unspecified (ICD-10 - F33.9) much morestable 04/23/2024 Attention and concentration deficit (ICD-10 - R41.840) renew Adderall. I tend not to think weight loss is due to this but possible. Will be hard to change 07/11/2023 Attention and concentration deficit (ICD-10 - R41.840) feels he is at good point on current rx 04/23/2024 Nicotine dependence, cigarettes, uncomplicated (ICD-10 - F17.210) now anon-smoker 05/23/2023 Other 11/10/2023 Other 03/26/2024 Other 07/11/2023 Other 12/26/2023 Other he declines vaccinations as usual 04/23/2024 Other declines vacinations one aprtner but asked for STD screen Plan Of Treatment Pending Test Test Name Order Date HEPATITIS C VIRAL RNA, QN REAL TIME PCR W/REFLS 05/12/2020 HEPATITIS B SURFACE AB IMMUNITY, QN 10/08 CHLAMYDIA DNA URINE 05/05/2022 CHLAMYDIA / GC DNA W RFLX 04/23/2024 GC DNA URINE 05/05/2022 HIV 1 AND 2 ANTIBODY SCREEN 05/05/2022 TTG IGA PANEL 04/23/2024 TREPONEMAL AB 05/05/2022 TSH CASCADE 04/24/2024 URINALYSIS 05/05/2022 URINE CULTURE 05/05/2022 CR Knee Bilateral 3 Views 12/06/2019 QUANTIFERON(R)-TB GOLD PLUS, 4T, INCUBAT ED 05/04/2018 Next Appt Details Provider Name:Tera Crawford, 06/25/2024 03:40:00 PM, [address] [place] [address], [place], [place], [phone], Insurance Providers Payer Name Payer Address Payer Phone Subscriber Number Group Number Insured Name Patient Relationship to Insured Coverage Start Date Coverage End Date [place] Medicaid C3 [address] [place], [place] [id number] Yossi Lowe Self - patient is the insured Medical (General) History Medical History History ICD Code Cocaine last use: last Monday 3-4- rob f gram day age: 18 Heroin: + IVDU (no use 10/2019 after rece nt relapse) + Hep C AB dx: 2006 no rx GI: ?[facility] Hep C-completed Harvoni Tx 2017-no VL/tx by [facility]/ ? genotype Probable Hep C reinfection 2019 has appt [facility] 06/25(missed appt) Hep C re-exposure Tx Mavyret [facility] x 8 weeks started 02/24/20 Opioid abuse with intoxication, unspecif ied F11.129 Opioid abuse with intoxication, unspecif ied undefined Other abnormal findings in specimens fro m male genital organs R86.8 Body mass index [BMI] 27.0-27.9, adult Z 68.27 Surgical History Surgery Date(Month/Year) Right hand - infection 2007 Hospitalization History Reason Date(Month/Year) JAMESON Arcenio Mijares 08/2019 Opioid Use Disorder, D/C to [facility] 07/12/19 [place] [facility] 12/24/18 [facility] ER, polysubstance abuse, dc to home 12/24/18 [facility], agitation or violen t behavior, altered mental status, right tripod fracture, in observation telemetry unit 12/11-12/14/18 [facility] ER, cocaine use, heroin use dc to re hab 12/09/18 [facility] Sectioned himself 2016
--- OUTSIDE RECORDS SUMMARY | 2024-05-17 06:32 | XMS_ITS | Encounter Summary ---
Author Organization [employer] Address [address] [place] [address] Care Team Providers Care It Infrastructure Engineer Name Role Phone Unavailable Primary Care Provider Unavailabl e Encounter Details Date Type Department Care Team (Latest Contact Info) Description 11/20/2018 Abstract [facility] CONVERSIONS Dental, Provider, DDS Social History Tobacco Use Types Packs/Day Years Used Date Smoking Tobacco: Never Assessed Sex and Gender Information Value Date Recorded Sex Assigned at Male 12/06/2021 10:29 AM EDT Legal Sex Male 10:29 AM EDT Gender Identity Choose not to disclose 10:29 AM EDT Sexual Orientation Choose not to disclose 2021 10:29 AM EDT documented as of this encounter Plan of Treatment Not on file documented as of this encounter Visit Diagnoses Not on filedocumented in this encounter
--- OUTSIDE RECORDS SUMMARY | 2024-05-17 06:33 | XMS_ITS ---
Author Organization [facility] Address [address] [place] [phone] Care Team Providers Care Bank Teller Machine Mechanic Name Role Phone Tear Crawford Primary Care Provider [phone] [facility], Nursing Unavailable [phone] REASON FOR VISIT Office: Thyroid labs Social History Sex Assigned At : Social History Observation Description Sex Assigned At Male Encounters Encounter Location Date Provider Diagnosis [address] [id number] 05/07/2024 [facility] Plan Of Treatment Next Appt Details Provider Name:Tera Crawford, 06/25/2024 03:40:00 PM, [address] [place] [address], [phone], Progress Notes * ADRIENNEJOSÉ MIGUELYossi IIIDOB:[birth year] (39 yo M)Acc No.[id number]:05/07/2024 Progress Notes Patient:?DAINTammyYossi II I Provider:?Provider [facility] :1985???Age:39 Y???Sex:Male Hamzah e:05/07/2024 Address:[address] [place] [address], [facility] [id number] Pcp:Tera Crawford Subjective: * Chief Complaints: * ???1. Office: Thyroid labs. Objective: * Vitals:? Assessment: Plan: * Treatment: * Images: Billing Information: * Visit Code:? * Procedure Codes:? * Electronic signature of [facility] on 05/17/2024 at 06:33 AM EDT Sign off status: Pending * Provider:?Provider [facility] Date:?05/07/2024 Generated for Anay taylor/Ward/Alecia on:?05/17/2024 06:33 AM EDT
--- OUTSIDE RECORDS SUMMARY | 2024-05-17 06:33 | XMS_ITS ---
Author Organization [facility] Address [address] [place] [phone] Care Team Providers Care Oceanography Professor Name Role Phone Tera Crawford Primary Care Provider Allergies No Known Allergies Results Component Value [...] added on due to different specimen requirements. REASON FOR VISIT Office : Chronic care f/u, Symptom screening by [facility] staff pre entrance to clinic, HUDDLE: Flu vaxl COVID vax (will say no); SDOH; PHQ-9, VCISIT: Mood; tobacco; thyroid Medications Medication SIG (Take, Route, Fr equency, Duration) Notes Start Date End Date Status Adderall 10 mg 1 tab(s) orally daily at noon; for 30 days for 04/28/24 04/23/2024 Active Adderall 30 mg 1 tab(s) orally 2 times a day; for 30 days for 04/28/24 04/23/2024 Active nicotine 4 mg 1 GUM chewed every 2 hours; cinnamon flavor preferred for 30 days Active mirtazapine 15 mg 1 tab(s) orally once a day (at bedtime) for 30 days Active gabapentin 600 mg 1 tab(s) orally 3 ti mes a day for 30 days Active nicotine 21 mg/24 hr 1 PATCH transdermal ly once a day for 28 days 09/26/2023 Active Social History Tobacco Use: Social History Observation Description Date Details (start date - stop date) Former Smoker NA - NA Sex Assigned At : Social History Observation Description Sex Assigned At Male Tobacco Use Assessment MU Question Answer Notes What is your current smoking status? former smok er Vital Signs Temperature 97.5 degrees Fahrenheit 04/24/19 25 Height 72 in 04/23/2024 Weight 175 lbs 04/23/2024 BMI 23.73 kg/m2 04/23/2024 Oximetry 98 04/23/2024 Blood pressure systolic 109 04/24/19 25 Blood pressure diastolic 70 025 Encounters Encounter Location Date Provider Diagnosis [address] [phone] 04/23/2024 Tera Crawford Encounter for screening for COVID-19 Z11.52 ; Abnormal weight loss R63.4 ; Subclinical iodine-deficiency hypothyroidism E02 ; Encounter for screening for infections with a predominantly sexual mode of transmission Z11.3 ; Attention and concentration deficit R41.840 and Nicotine dependence, cigarettes, uncomplicated F17.210 Assessments Encounter Date Diagnosis (ICD Code) Assessment Notes Treat ment Notes Treatment Clinical Notes 04/23/2024 Encounter for screening for COVID-19 (ICD-10 [...] are having concerning symptoms for COVID-19. 04/23/2024 Abnormal weight loss (ICD-10 - R63.4) States eatiung alot adn losing Hyperthyori din diferental; also celiac even without bowel sx. Labs ordered. if nil, then maybe GI and also food diary 04/23/2024 Subclinical iodine-deficiency hypothyroidism (ICD-10 - E02) ordering thryoid labs 04/23/2024 Encounter for screening for infections with a predominantly sexual mode of transmission (ICD-10 - Z11.3) 04/23/2024 Attention and concentration deficit (ICD-10 - R41.840) renew Adderall. I tend not to think weight loss is due to this but possible. Will be hard to change 04/23/2024 Nicotine dependence, cigarettes, uncomplicated (ICD-10 - F17.210) now anon-smoker 04/23/2024 Other declines vacinations one aprtner but asked for STD screen Plan Of Treatment Medication Medication Name Sig Start Date Stop Date Notes Adderall 10 mg 1 tab(s) orally daily at noon; for 30 days 04/23/2024 Adderall 30 mg 1 tab(s) orally 2 times a day; for 30 days 04/23/2024 Treatment Notes Assessment Notes Encounter for screening for COVID-19 Cov id screening is negative. Discussed in detail with [...] you are having concerning symptoms for COVID-19. Abnormal weight loss States eatiung alot adn losing Hyperthyori din diferental; also celiac even without bowel sx. Labs ordered. if nil, then maybe GI and also food diary Subclinical iodine-deficiency hypothyroi dism ordering thryoid labs Attention and concentration deficit james w Adderall. I tend not to think weight loss is due to this but possible. Will be hard to change Nicotine dependence, cigaret елена, uncomplicated now anon-smoker Other declines vacinations one aprtner but asked for STD screen Pending Test Test Name Order Date CHLAMYDIA / GC DNA W RFLX 04/23/2024 TTG IGA PANEL 04/23/2024 Next Appt Details Follow Up: 2 Months, Reason: AB: greg Provider Name:Tera Crawford, 06/25/2024 03:40:00 PM, [address] [place] [address], [place], [phone], Progress Notes * Yossi CHAKRABORTY IIIDOB:[birth year] (39 yo M)Acc No.[id number]:04/23/2024 Progress Notes Patient:?Yossi CHAKRABORTY II I Provider:?Tera Crawford MD :1985???Age:39 Y???Sex:Male Hamzah e:04/23/2024 Address:[address] [place], [place] [phone] Subjective: * Chief Complaints: * ???1. Office : Chronic care f/u. 2. Symptom screening by [facility] staff pre entrance to clinic. 3. HUDDLE: Flu vaxl COVID vax (will say no); SDOH; PHQ-9. 4. VCISIT: Mood; tobacco; thyroid. * HPI: ???General:? Symptom Screen: - Fever in the last 1 week? Patient denies - New or worsening cough in the last 1 week? Patient denies. - Contact will known COVID exposure in last 5 days? Patient denies -new rash within last 3 weeks? Patient denies - Have you received the COVID-19 vaccine?no - Have you received COVID-19 booster? - Have you been tested positive for COVID -19 in the last 7 days? If so where and? ES: pt presenting to clinic for appt with PCP - denies complaints at this time AB:? HIS AGENDA: weight loss - says he is losing weight; low energy (weight down 15 lbs in 1.5 years).? Tries to eat more and feeel hungryshortly after whole meal.?? asking about bowels-nodiarrhea; no sweats; no tremor; vision OK.? no swollen galnds; no NV; no rashes FH nil.? asked about STD risk-low Adderall dose the same.? Has been on same dose for years Otherwise well. ???Depression Screening:?PHQ-9?Little interest or pleasure in doing things?Not at all ?Feeling down, depressed, or hopeless?Not at all ?Trouble falling or staying asleep, or sleeping too much?Not at all ?Feeling tired or having little energy?Nearly every day ?Poor appetite or overeating?Not at all ?Feeling bad about yourself-or that you are a failure or have let yourself or your family down?Not at all ?Trouble concentrating on things, such as reading the newspaper or watching television?Not at all ?Moving or speaking so slowly that other people could have noticed. Or the opposite being so fidgety or restless that you have been moving around a lot more than usual?Not at all ?Thoughts that you would be better off , or of hurting yourself in some way?Not at all ?Total Score?3 ?Intepretation?Minimal Depression * ROS:?GENERAL:?Constitutional?denies,?fevers, chills, Pt is able to walk 1 flight of stairs without stopping.?Respiratory?denies,?shortness of breath, wheezing.?Cardiovascular?denies,?chest pain/pressure, syncope.?No acute C/P no acute SOB, No problem with urine, No heartburn or abdominal pain. Endorses being able to climb one fight of stairs without stopping due to SOB, Mood: stable, appetite: good, sleeping well. Denies new skin rashes. * Medical History:?Cocaine las t use: last 3-4-13 half gram day age: 18, Heroin: + IVDU (no use 10/2019 after recent relapse), + Hep C AB dx: 2006 no rx GI: ?[facility] , Hep C-completed Harvoni Tx 2017-no VL/tx by [facility]/ ? genotype, Probable Hep C reinfection 2019 has appt [facility] 06/25(missed appt), Hep C re-exposure Tx [facility] x 8 weeks started 02/24/20, Opioid abuse with intoxication, unspecified, Opioid abuse with intoxication, unspecified, Other abnormal findings in specimens from male genital organs, Body mass index [BMI] 27.0-27.9, adult. * Surgical History:?Right hand - infection 2007. * Hospitalization/Major Diagno stic Procedure:?[facility] Sectioned himself 2016, [facility], cocaine use, heroin use dc to rehab 12/09/18, [facility], agitation or violent behavior, altered mental status, right tripod fracture, in observation telemetry unit 12/11-12/14/18, [facility] ER, polysubstance abuse, dc to home 12/24/18, [facility] 12/24/18, Opioid Use Disorder, D/C to [facility] 07/12/19, [facility]ares 08/2019. * Family History:?Mother: dece ased, OD.?Father: , OD.? brother also with addiction issues, just completed Hep C Tx 2016. * Social History:?Housing/living arrangements: 04/2024 - Own apartment in [place]03/2022 Own apartment in [place]. ???SDoH Screening?Entered Date?04/23/2024 ?How is this screening being conducted today??In-person ?What is your housing situation today??I have housing ?Think about the place you live. Do you have problems with any of the following? (Check all that apply)?None of the above ?Within the past 12 months, you worried that your food would run out before you got money to buy more?Often true ?Within the past 12 months, the food you bought just didn't last and you didn't have enough money to get more?Often true ?In the past 12 months, has lack of transportation kept you from medical appointments, meetings, work or from getting things needed for daily living? 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 where ???Tobacco Use Assessment MU?Annual Tobacco assessment completed?04/23/2024 ?Tobacco assessment completed?04/23/2024 ?What is your current smoking status??former smoker ?Vaping?04/14/202304/2023 pt states he vape a lot ???Drug use?Date of history:?04/14/202304/2023 Denieslast use 05/2021.,, ???Opiate Use Hx?Ever taken opiates?Yes 04/2024 denies use ?Age at First opiate use?22 ?What did you use first??Opiate pills from the street ?Ever used IV??Yes ?Age at first IV use?22 ?Are you currently active in your addiction??No 04/2024 3 years clean ???Alcohol Use: never, 04/2024 occasionally04/2023 Denies03/2022 Denies. 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 ???School: yes?Last grade completed?12 ???Marital Status: Single. ???Childhood experience?In fostercare/DYS for a portion of childhood Yes, Victim of physical abuse No, Victim of sexual abuse No, Adults at home using drugs/drinking excessivly No, Witness to violence/DV in childhood No.?Children: none. ???Sabianism: none. ???TBI screening/Head injury Hx: Positive. ???Benefits Assessment?Applied for [employer] on april 14, Needs to enroll, no, no/appeal, N/A, N/A, referred to DTA, referred to DTA, N/A, does not have, [place] [employer]'s License, in possession, yes, 04/14/14 GD2.? * Medications:?Taking mirtazap ine 15 mg tablet 1 tab(s) orally once a day (at bedtime) , Taking gabapentin 600 mg tablet 1 tab(s) orally 3 times a day , Taking nicotine 4 mg gum 1 GUM chewed every 2 hours; cinnamon flavor preferred , Taking nicotine 21 mg/24 hr film, extended release 1 PATCH transdermally once a day , Taking Adderall 30 mg tablet 1 tab(s) orally 2 times a day; for 03/29/24, Taking Adderall 10 mg tablet 1 tab(s) orally daily at noon; for 03/29/24, Medication List reviewed and reconciled with the patient * Allergies:?N.K.D.A. Objective: * Vitals:?BP Generic: 109/70, Ht: 72, Wt: 175, BMI:23.73, HR: 77, Oxygen sat %: 98, Temp: 97.5. * Physical Examination:?Weight decrease noted VS noted ?No cervucal or axillary nodes no thryoid enlargement and no bruit EOMI withpout lid pag or exophthalmos no murmur chest cealt abd soft and no HS megale minimal resting tremor refelxes suppressed no edema. Assessment: * Assessment: 1.?Abnormal weight loss - R6 3.4 (Primary)???2.?Encounter for screening for COVID-19 - Z11.52???3.?Subclinical iodine-deficiency hypothyroidism - E02???4.?Encounter for screening for infections with a predominantly sexual mode of transmission - Z11.3???5.?Attention and concentration deficit - R41.840???6.?Nicotine dependence, cigarettes, uncomplicated - F17.210??? Plan: * Treatment: ? Value Reference Range ?Sodium 136 133-145 - mmol/ L * ?Potassium 3.9 3.5-5.5 - mmo l/L * ?Chloride 103 96-110 - mmol/ L * ?CO2 26 21-32 - mmol/L * ?Anion Gap 7 3-11 - * ?Glucose 91 70-100 - mg/dL * ?BUN 22 5-25 - mg/dL * ?Creatinine 1.01 0.70-1.30 - mg/dL * ?eGFR 98 >=60 - mL/min/1 .73m2 * ?BUN/Creatinine Ratio 21.8 - * ?Calcium 9.2 8.5-10.5 - mg/d L * ?AST (SGOT) 23 10-42 - unit /L * ?ALT (SGPT) 20 10-60 - unit /L * ?Alkaline Phosphatase 61 42 -121 - unit/L * ?Total Protein 7.2 6.0-8.0 - g/dL * ?Albumin 4.0 3.2-5.0 - g/dL * ?Total Bilirubin 0.8 0.0-1.4 - mg/dL Notes: States eatiung alot adn losing Hyperthyori din diferental; also celiac even without bowel sx. Labs ordered. if nil, then maybe GI and also food diary?? 2.?Encounter for screening for COVID-19? Notes:Covid screening is negative. Discussed in detail with [...] if you are having concerning symptoms for COVID-19.??3.?Subclinical iodine- deficiency hypothyroidism? Notes: ordering thryoid labs??4.?Encounter for screening for infections with a predominantly sexual mode of transmission?LAB: CHLAMYDIA / GC DNA W RFLX (Collection Date & Time - 04/23/2024 04:37 PM) ?LAB: HEPATITIS C ANTIBODY (Collection Date & Time - 04/23/2024 04:36 PM)? Positive* ? Value Reference Range ?Hepatitis C Antibody Positive A Ne gative - * Tera Crawford 04/24/2024 10: 04:17 AM EDT >prebvious positive 5.?Attention and concentration deficit? Refill Adderall tablet, 30 mg, 1 tab(s), orally, 2 times a day; for 04/28/24, 30 days, 60, Refills 0;?Refill Adderall tablet, 10 mg, 1 tab(s), orally, daily at noon; for 04/28/24, 30 days, 30, Refills 0.?? Notes: renew Adderall. I tend not to think weight loss is due to this but possible. Will be hard tochange??6.?Nicotine dependence, cigarettes, uncomplicated? Notes: now anon-smoker??7.?Others? Notes: declines vacinations one aprtner but asked for STD screen?? * Procedure Codes:?39155 SPECI MEN HANDLING, 96134 VENIPUNCT, ROUTINE* * Follow Up:?2 Months (Reason: AB: wreight) * Images: Billing Information: * Visit Code:? 77863 HPI: 1PF;1ROS;PE: 2-4BA/SYS;MDM:Low; Prescription/OTC;most infections or >50%/15min spent counseling. * Procedure Codes:? 58661 SPECIMEN HANDLING. 36716 VENIPUNCT, ROUTINE*. Care Plan Details* * Sign off status: Completed true * Provider:?Tera Crawford MD Date:?2024 Generated for Anay taylor/Ward/eTransmitting on:?05/17/2024 06:32 AM EDT History and Physical Notes * HPI (History of Present Illness) Category Sub-Category Detail Notes Depression Screening PHQ-9 Little inte rest or pleasure in doing things: Not at all Feeling down, depressed, or hopeless: No t at all Trouble falling or staying asleep, or sl eeping too much: Not at all Feeling tired or having little energy: N early every day Poor appetite or overeating: Not at all Feeling bad about yourself-o r that you are a failure or have let yourself or your family down: Not at all Trouble concentrating on thi ngs, such as reading the newspaper or watching television: Not at all Moving or speaking so slowly that other people could have noticed. Or the opposite being so fidgety or restless that you have been moving around a lot more than usual: Not at all Thoughts that you would be b roselia off , or of hurting yourself in some way: Not at all Total Score: 3 Intepretation: Minimal Depression
--- OUTSIDE RECORDS SUMMARY | 2024-05-17 06:33 | XMS_ITS | Clinical Summary ---
Author Organization [employer] Address [address] [place] [address] Care Team Providers Care Perinatal Tech Name Role Phone Unavailable Primary Care Provider Unavailabl e Social History Tobacco Use Types Packs/Day Years Used Date Smoking Tobacco: Never Assessed Sex and Gender Information Value Date Recorded Sex Assigned at Male 12/06/2021 10:29 AM EDT Legal Sex Male 10:29 AM EDT Gender Identity Choose not to disclose 10:29 AM EDT Sexual Orientation Choose not to disclose 2021 10:29 AM EDT Plan of Treatment Health Maintenance Due Date Last Done Comments Depression Screening 1986 Lipid Panel 1986 Alcohol/Substance Use Screening 1998 Tobacco Screening 1998 Family Planning (PISQ) 2001 DTaP/Tdap/Td Vaccines (1 - Tdap) 2005 Hepatitis B Vaccines (1 of 3 - 19+ 3-dose series) 2005 COVID-19 Vaccine (1 - 2023-2 5 season) 2023 Influenza Vaccine (#1) 2023 Zoster Vaccines (1 of 2) 01/16/2036 RSV Patients and Pa tients Aged 60 years or older (1 - 1-dose 75+ series) 2061 HIB Vaccines Aged Out No longer eligi ble based on patient's age to complete this topic HPV Vaccines Aged Out No longer eligi ble based on patient's age to complete this topic Hepatitis A Vaccines Aged Out No long er eligible based on patient's age to complete this topic IPV Vaccines Aged Out No longer eligi ble based on patient's age to complete this topic Meningococcal Vaccine Aged Out No shad eric eligible based on patient's age to complete this topic Pneumococcal Vaccine: Pediat rics (0 to 5 Years) and At-Risk Patients (6 to 49) Years) Aged Out No longer eligible b ased on patient's age to complete this topic RSV under 20 months Aged Out No longe r eligible based on patient's age to complete this topic Rotavirus Vaccines Aged Out No longer eligible based on patient's age to complete this topic
--- NOTE | 2024-05-17 06:46 | PC.NURSE ---
Pt self presents with reports of having a tough time in life right now, I need a change of pace Reports SI no plan, denies HI. Patient changed into a behavioral health attire, belongings secured. Labs drawn and send to lab, del[facility] [employer] and jeanne jessica provided to pt. 1:1 sitter at bedside.
--- NOTE | 2024-05-17 07:51 | PC.NURSE ---
Pt has sitter nearby. is changed over. fidgety in recliner but calm and cooperative. NAD. skin PWD.
--- NOTE | 2024-05-17 09:24 | ED.PSYCH ---
HPI - Psych General Chief Complaint: Psychiatric Symptoms Stated Complaint: Mental Health Issues Time Seen by Provider: 05/17/24 08:26 History of Present Illness HPI Narrative: Patient is a 31-year-old male presented today after having a tough time in life has been using cocaine heroin and alcohol. Had thoughts about hurting himself but did not have any specific plans. No homicidal ideation. Came to the ED for help. Patient from the street. Related Data Home Medications ?Medication ?Instructions ?Recorded ?Confirmed dextroamphetamine-amphetamine 10 1 tab PO DAILY 05/17/24 05/17/24 mg tablet gabapentin 600 mg tablet 600 mg PO TID 05/17/24 05/17/24 Previous Rx's ?Medication ?Instructions ?Recorded nicotine 21 mg/24 hr daily 21 mg transdermal DAILY #30 ea 05/19/22 transdermal patch mirtazapine 15 mg tablet 15 mg PO BEDTIME #15 tabs 05/26/22 multivitamin (Daily-Viji tablet) 1 tab PO DAILY #30 tabs 05/26/22 dextroamphetamine-amphetamine 30 30 mg PO BID #14 tabs 06/06/22 mg tablet (Adderall) Allergies Allergy/AdvReac Type Severity Reaction Status Date / Time No Known Allergies Allergy Verified 05/17/24 04:54 [No Known Allergies*] Review of Systems Review of Systems: No fever no chills no chest pain Yes all other systems are reviewed and are negative PMFSH Past Medical History Attestation statement: The following information was validated with the patient. Medical History Opioid use disorder Anxiety ADHD Bipolar disorder Opioid dependence on agonist therapy History of intravenous drug abuse Social History Social History Household Members: None Housing: Apartment Do you presently have visiting nurse or other home services: No Patient Tobacco Use Status: Current everyday Tobacco user Tobacco use type: Smokeless Tobacco Smoked in Last 30 Days: Yes e-Cigarette/Vaping Use: Currently Using Use of substances other than those prescribed or required for medical reasons: Yes Substance Use Type: Crack/Cocaine and Marijuana Last Used Substance: Hours (ago) Any prior treatment program specific to substance use: Yes Advance Directives: No Advance Directives Information Provided: Yes Do you have a plan to hurt others: No Plan service: No Sexual orientation: Straight/Heterosexual Physical Exam Vital Signs: Vital Signs: Last Vital Signs Temp 98.2 F 05/17/24 12:46 Pulse 62 05/17/24 12:46 Resp 16 05/17/24 12:46 BP 128/86 05/17/24 12:46 Pulse Ox 99 05/17/24 12:46 O2 Del Method Room Air 05/17/24 12:46 BMI result Body Mass Index 24.1 Appearance: Alert. Oriented X3. No acute distress. Eyes: Pupils equal, round and reactive to light. ENT: Pharynx normal. Neck: Normal inspection. Neck supple. No lymph nodes noted. No crepitus CVS: Normal heart rate and rhythm. Pulses normal. Normal S1 and S2 Respiratory: No respiratory distress. Breath sounds normal. No Wheezing. No rales Abdomen: Soft and nontender. No rigidity. No distention. good BS x4 Skin: Skin warm and dry. Normal skin color. Normal skin turgor. Extremities: No lower extremity edema. Neurovascular intact to all extremities. No Lacerations. No Rash Neuro: Oriented X 3. No motor deficit. No sensory deficit. Moving all extermities. No slurred speech Medications Administered Generic Name Dose Route Start Last Admin Trade Name Freq PRN Reason Stop Dose Admin Amphetamine/Dextroamphetamine 30 mg 05/17/24 14:45 05/17/24 15:40 Amphetamine Mixed Salts 10 Mg Tablet PO 30 mg BID DOREEN Administration Amphetamine/Dextroamphetamine 10 mg 05/17/24 14:45 05/17/24 15:40 Amphetamine Mixed Salts 10 Mg Tablet PO Not Given DAILY DOREEN Gabapentin 600 mg 05/17/24 15:00 05/17/24 15:40 Gabapentin 600 Mg Tablet PO 600 mg TID DOREEN Administration Multivitamins/Vitamin C 1 tab 05/17/24 14:45 05/17/24 15:40 Multivitamin Tablet PO 1 tab DAILY DOREEN Administration Nicotine 21 mg 05/17/24 14:45 05/17/24 15:40 Nicotine 21 Mg Patch.[id number] TRANSDERMA 21 mg DAILY DOREEN Administration Discontinued Medications Generic Name Dose Route Start Last Admin Trade Name Freq PRN Reason Stop Dose Admin Lorazepam 1 mg 05/17/24 14:42 05/17/24 15:40 Lorazepam 1 Mg Tablet PO 05/17/24 14:43 1 mg ONCE ONE Administration Medical Decision Making Medical Decision Making MDM Narrative: Patient is 39 years old presented today with having a rough time in life. Has suicidal ideation but no plan. Admits to using recreational drugs including cocaine. Patient was evaluated by care team. Will send patient for dual diagnosis admission. Differential Diagnosis Differential Diagnoses: The differential diagnosis associated with the presentation includes Polysubstance abuse, suicidal ideation Admission/Observation Consideration of admission/observation: Escalation of care including admission/observation considered Consult Healthcare Provider Management of the patient was discussed with: Director Of [employer] (Care team) Lab Data MDM Lab Attestation statement: I reviewed the patient's lab results. 05/17/24 05:37 05/17/24 05:37 Labs: Lab Results 05/17/24 05/17/24 Range/Units 05:37 10:23 WBC 9.6 (4.8-10.8) X10*3/uL RBC 5.00 (4.60-5.80) X10*6/uL Hgb 14.1 (14.0-18.0) g/dl Hct 39.8 L (42.0-52.0) % MCV 79.6 L (80.0-98.0) fL MCH 28.2 (27.0-33.0) pg MCHC 35.4 (31.0-36.0) g/dl RDW 12.6 (11.0-16.0) % Plt Count 259 (160-400) X10*3/uL MPV 8.6 L (9.4-12.4) fL Immature Gran % (Auto) 0.2 (0.0-0.4) % Neut % (Auto) 63.7 (45-73) % Lymph % (Auto) 23.9 (20-40) % [place] % (Auto) 10.1 (2-11) % Eos % (Auto) 1.5 (0-4) % Baso % (Auto) 0.6 (0-2) % Lymph # (Auto) 2.3 (1.2-4.9) X10*3/uL [place] # (Auto) 1.0 (0.1-1.2) X10*3/uL Eos # (Auto) 0.1 (0.0-0.4) X10*3/uL Baso # (Auto) 0.1 (0.0-0.2) X10*3/uL Abs Immat Gran (auto) 0.02 (0.00-0.03) X10*3/uL Absolute Neuts (auto) 6.1 (2.0-8.3) x10*3/uL Absolute Nucleated RBC 0.000 (0.0-0.012) X10*3/uL Nucleated RBC % (auto) 0.0 (0.0-0.2) /100WBC Sodium 137 (135-145) mmol/L Potassium 3.6 (3.3-5.1) mmol/L Chloride 101 (96-108) mmol/L Carbon Dioxide 24 (22-29) mmol/L Anion Gap 16 (12-20) BUN 23 H (9-16) mg/dL Creatinine 0.97 (0.5-1.4) mg/dL Estim Creat Clear Calc 113.3 Estimated GFR > 60 Random Glucose 108 (60-115) mg/dL Calcium 9.4 (8.4-10.2) mg/dL Total Bilirubin 1.0 (0.0-1.0) mg/dL AST 65 H (5-37) U/L ALT 38 (0-40) U/L Alkaline Phosphatase 50 (39-117) U/L Total Protein 6.8 (6.5-8.0) g/dL Albumin 4.3 (3.5-5.0) g/dL Urine Color Yellow Urine Appearance Clear Urine pH 5.5 (5.0-9.0) Ur Specific [place] >= 1.030 H (1.005-1.025) Urine Protein Negative (Neg-Trace) mg/dL Urine Glucose (UA) Negative (Negative) mg/dL Urine Ketones Trace (Negative) mg/dL Urine Blood Negative (Negative) Urine Nitrite Negative (Negative) Ur Leukocyte Esterase Negative (Negative) Urine RBC 0-2 (0-2) /HPF Urine WBC 0-5 (0-5) /HPF Ur Squamous Epith Cells 0-2 (0-2) /HPF Urine Bacteria None Seen (None Seen) Hyaline Casts 0-2 (0-2) /LPF Salicylates < 5.0 L (15-30) mg/dL Urine Opiates Screen POSITIVE H (Not Detect) Ur Buprenorphine Scrn Not Detected (Not Detect) ng/mL Ur Oxycodone Screen Not Detected (Not Detect) ng/mL Urine Methadone Screen Not Detected (Not Detect) ng/mL Urine Fentanyl Screen POSITIVE H (Not Detect) Acetaminophen < 3 (<30) mcg/mL Ur Barbiturates Screen Not Detected (Not Detect) Ur Phencyclidine Scrn Not Detected (Not Detect) Ur Amphetamines Screen Not Detected (Not Detect) U Benzodiazepines Scrn Not Detected (Not Detect) Urine Cocaine Screen POSITIVE H (Not Detect) U Marijuana (THC) Screen POSITIVE H (Not Detect) Ethyl Alcohol < 10 mg/dL COVID-19 (ROBBIE) Negative (Negative) COVID-19 Clin Com See Note Independent Interpretation I performed an independent interpretation of an: EKG (Sinus heart rate is 60 MI QRS QTC normal no acute ST segment elevation there is mild J-point elevation noted) Chronic Conditions Polysubstance abuse Social Determinants Patient?s care significantly limited by Social Determinants of Health including: Alcoholism and drug addiction in family and Problems related to primary support group Discharge Plan Discharge Clinical Impression: Cocaine use, Suicidal ideation Patient Disposition: Xfer Inpatient Rehab Fac Prescriptions: No Action nicotine 21 mg/24 hr Patch 24 Hour 21 mg transdermal DAILY Qty: 30 0RF multivitamin [Daily-Viji] Tablet 1 tab PO DAILY Qty: 30 0RF mirtazapine 15 mg Tablet 15 mg PO BEDTIME Qty: 15 1RF dextroamphetamine-amphetamine [Adderall] 30 mg tablet 30 mg PO BID Qty: 14 0RF Rx Instructions: administer doses at least 4-6 hours apart; Partial Fill upon patient request. dextroamphetamine-amphetamine 10 mg tablet 1 tab PO DAILY gabapentin 600 mg tablet 600 mg PO TID Interventions: [place]-Suicide Risk Severity Scale Last Done: 05/17/24 05:26 Print Language: Egyptian
[2024-05-17 10:39] LABS: Amphetamine Screen Urine Not Detected (Not Detect); Barbiturates, Urine Not Detected (Not Detect); Benzodiazepines Screen Urine Not Detected (Not Detect); Buprenorphine Scr Not Detected (Not Detect); Cannabinoid Screen Urine POSITIVE (Not Detect); Cocaine Screen Urine POSITIVE (Not Detect); Fentanyl, urine POSITIVE (Not Detect); Methadone Screen, Urine Not Detected (Not Detect); Opiate Screen Urine POSITIVE (Not Detect); Oxycodone Screen Urine Not Detected (Not Detect); Phencyclidine Screen Urine Not Detected (Not Detect)
[2024-05-17 12:00] LABS: Appearance Urine Clear; Color Urine Yellow; Glucose Urine UA Negative (Negative); Leukocyte Esterase Urine Negative (Negative); Nitrite Urine Negative (Negative); PH 5.5 (5.0-9.0); Specific Gravity - Urine >= 1.030 (1.005-1.025); Urine Blood Negative (Negative); Urine Ketones Trace mg/dL (Negative); Urine Protein Negative (Neg-Trace)
[2024-05-17 12:10] LABS: Bacteria Urine None Seen (None Seen); Hyaline Casts Urine 0-2 /LPF (0-2); RBC Urine 0-2 /HPF (0-2); Squamous Epithelial Cell Urine 0-2 /HPF (0-2); WBC Urine 0-5 /HPF (0-5)
[2024-05-17 12:46] VITALS: BP 128/86; PULSE 62; RESP 16; TEMP 36.8; O2SAT 99
--- NOTE | 2024-05-17 13:19 | PC.NURSE ---
medications reconciled with patient and [facility] and pt states he hasn't taken his meds in over a week.
--- NOTE | 2024-05-17 15:02 | MHC.CARE ---
Pt was accepted to [facility] for today. The accepting doctor is Dr. San and the ETA is 7pm. The accepting facility does not require a n2n. [place] [address]. ED RN and CARE team have been notified. Thank you.
[2024-05-17] MEDS: Nicotine 21 MG PATCH.TD24 TRANSDERMA (15:40)
[2024-05-17] MEDS: Gabapentin 600 MG TABLET PO (15:40)
[2024-05-17] MEDS: LORazepam 1 MG TABLET PO (15:40)
[2024-05-17] MEDS: Amphetamine Mixed Salts 10 MG TABLET 30 MG PO (15:40)
[2024-05-17] MEDS: Multivitamin TABLET 1 TAB PO (15:40)
--- NOTE | 2024-05-17 16:23 | PC.NURSE ---
This RN informed by care team that pt was accepted to [facility] for dual dx inpatient treatment. transfer to facility set for 5pm. Per care team no RN-RN report is required or requested by facility.
[2024-05-17 17:07] VITALS: BP 128/86; PULSE 62; RESP 16; TEMP 36.8; O2SAT 99
== END 2024-05-17 17:20 ==
PROVIDERS: Emergency Medicine Emergency Medical Services; Emergency Provider Emergency Medicine; PCP Internal Medicine
DX: R45.851 Suicidal ideations (principal); F14.10 Cocaine abuse, uncomplicated; F11.10 Opioid abuse, uncomplicated; R94.31 Abnormal electrocardiogram [ECG] [EKG]; F17.210 Nicotine dependence, cigarettes, uncomplicated; Z11.52 Encounter for screening for COVID-19; Z79.899 Other long term (current) drug therapy; Z51.81 Encounter for therapeutic drug level monitoring
CPT/HCPCS: 80053; 80143; 80179; 80307; 81001; 85025; 87635; 93005; 99285; S9485

== ENCOUNTER → 2024-05-17 12:39 | Outpatient (BNV) | payer MEDICAID, SELFPAY | PROVIDERS: Emergency Provider Emergency Medicine; PCP Internal Medicine; Visit Provider Internal Medicine Cardiovascular Disease | DX: I21.29 ST elevation (STEMI) myocardial infarction involving other sites (principal) | CPT/HCPCS: 93010 ==